=== PATIENT | male | born 1935 | race Caucasian/White ===

== ENCOUNTER → 2017-07-04 08:28 | Outpatient (CLI) | payer MEDICARE, OTHER, SELFPAY ==
[2017-07-04 09:28] LABS: AST(SGOT) 16 U/L (15-37); Alanine Aminotransfer ALT/SGPT 19 U/L (16-61); Albumin, Serum 3.5 g/dL (3.2-5.0); Alkaline Phosphatase 108 U/L (45-117); Bilirubin, Direct 0.07 mg/dL (0.00-0.30); Cholesterol 151 mg/dL (200); Globulin 3.9 g/dL (2.2-4.2); High Density Lipoprotein 37 mg/dL; Protein, Total 7.4 g/dL (6.4-8.2); Triglycerides 140 mg/dL; Very Low Density Lipoprotein 28 mg/dL (5-40)
== END ==
PROVIDERS: Family Provider Family Medicine Geriatric Medicine; PCP Family Medicine Geriatric Medicine; Visit Provider Internal Medicine Cardiovascular Disease
DX: I50.22 Chronic systolic (congestive) heart failure (principal); I42.8 Other cardiomyopathies
CPT/HCPCS: 36415; 80061; 80076

== ENCOUNTER → 2018-05-03 14:08 | Outpatient (CLI) | payer MEDICARE, OTHER, SELFPAY ==
[2018-05-03 14:08] VITALS: BMI 27.4
[2018-05-03 15:57] LABS: Absolute Lymphocyte Count 1.28 X10^3/ul (0.83-4.51); Absolute Neutrophil Count 4.9 X10^3/uL (2.0-7.7); Basophil# 0.03 X10^3/uL; Basophil% 0.4 % (0-1); Eosinophil# 0.15 X10^3/uL; Eosinophils% 2.1 % (0-5); Hematocrit 46.7 % (40-54); Hemoglobin 15.1 g/dl (13.0-16.5); Lymphocyte # 1.28 X10^3/ul (4.0); Lymphocyte % 18.2 % (19-41); Mean Corp Hgb Conc 32.3 g/gl (32-36); Mean Corpuscular Volume 92.8 fL (80-94); Mean Platelet Vol. 9.8 fl (6.2-12.0); Monocyte# 0.68 X10^3/uL; Monocyte% 9.6 % (0-10); Neutrophil # 4.89 X10^3/uL (2.7-7.7); Neutrophil % 69.4 % (47-70); Platelet Count 216 K/mm3 (150-450); RBC Distribution Width CV 14.2 % (11.6-14.6); RBC Distribution Width SD 48.2 fl (35.1-43.9); Red Blood Count 5.03 M/mm3 (4.6-6.2); White Blood Count 7.1 K/mm3 (4.4-11.0)
[2018-05-03 16:14] LABS: POSITIVE COUNT NO; POSITIVE DIFFERENTIAL NO; POSITIVE MORPHOLOGY NO
[2018-05-03 16:18] LABS: Vitamin D,25 Hydroxy 23.2 ng/mL (29.95-100.01)
[2018-05-03 16:25] LABS: ALB/GLOB Ratio 0.8 RATIO (0.9-2.4); AST(SGOT) 16 U/L (15-37); Alanine Aminotransfer ALT/SGPT 18 U/L (16-61); Albumin, Serum 3.4 g/dL (3.2-5.0); Alkaline Phosphatase 95 U/L (45-117); Anion Gap 7 (5-15); BUN 21 mg/dL (7-18); BUN/Creat Ratio 16.9 RATIO (10-20); Calcium,Total 8.7 mg/dL (8.5-10.1); Chloride 105 mmol/L (98-107); Creatinine, Serum 1.24 mg/dL (0.70-1.30); EST Glomerular Filtration Rate 59 mL/min (>60); Est Glom Filt Rate - Afr Amer 72 mL/min (>60); Globulin 4.1 g/dL (2.2-4.2); Glucose 112 mg/dL (74-106); Potassium 4.2 mmol/L (3.5-5.1); Protein, Total 7.5 g/dL (6.4-8.2); Sodium Level 139 mmol/L (136-145); Thyroid Stim Hormone (TSH) 1.82 uIU/mL (0.358-3.74)
--- OUTSIDE RECORDS SUMMARY | 2018-06-19 18:54 | XMS RPT_ITS ---
:1935 Author Organization OHIP Care Team Providers Name Role Phone Mian, Chago Chi Attending Unavailable Mian, Chago Chi Primary Care Unavailable Agustin Tao Attending Unavailable Mian, Chago Chi Referring Unavailable Aretha Justice Attending Unavailable Yordy Hayes Attending Unavailable Mian, Chago Chi Referring Unavailable Mian, Chago Chi Primary Care Unavailable Yordy Hayes Attending Unavailable Mian, Chago Chi Primary Care Unavailable Yordy Hayes Attending Unavailable Mian, Chago Chi Referring Unavailable Mian, Chago Chi Primary Care Unavailable Yordy Hayes Attending Unavailable Mian, Chago Chi Referring Unavailable Yordy Hayes Attending Unavailable Mian, Chago Chi Referring Unavailable Main, Chago Chi Primary Care Unavailable PROBLEMS PROBLEMS DATE TYPE CONDITION / CODE ATTENDING STATUS SOURCE 02/02/2018 Unknown I42.8 - Other Yordy Hayes Active [facility] cardiomyopathies / Community I42.8(ICD-10) Hospital Repository 08/29/2017 Unknown I50.22 - Chronic Yordy Hayes Active [facility] systolic (congestive) [facility] heart failure / Hospital I50.22(ICD-10) Repository PROCEDURES PROCEDURES No Procedure Records FoundRESULTS RESULTS CBC W/DIFF, AUTOMATED Collected: 05/03/2018 Status: F Source: [place] 2:10 PM [facility] REPOSITORY TYPE CODE TESTS RESULT OUT OF RANGE REFERENCE UNITS LAB L100.1000 4.4-11.0 K/mm3 Normal WBC 7.1 LAB L100.1200 4.6-6.2 M/mm3 Normal RBC 5.03 LAB L100.1300 13.0-16.5 g/dl Normal HGB 15.1 LAB L100.1400 40-54 % Normal HCT 46.7 LAB L100.1500 80-94 fL Normal MCV 92.8 LAB L100.1600 27.0-32.0 pg Normal MCH 30.0 LAB L100.1700 32-36 g/gl Normal MCHC 32.3 LAB L100.1810 11.6-14.6 % Normal RDW CV 14.2 LAB L100.1820 35.1-43.9 fl High RDW SD 48.2 LAB L100.1900 150-450 K/mm3 Normal PLT 216 LAB L100.2000 6.2-12.0 fl Normal MPV 9.8 LAB L100.2100 47-70 % Normal NEUT% 69.4 LAB L100.2200 19-41 % Low LY% 18.2 LAB L100.2300 0-10 % Normal MONO% 9.6 LAB L100.2400 0-5 % Normal EO% 2.1 LAB L100.2500 0-1 % Normal BASO% 0.4 LAB L100.2550 0.0-0.9 % Normal IM GRAN % 0.300 Result Comment: IG% - Immature Granulocytes (promyelocytes, myelocytes and metamyelocytes) > 1% indicates that a LEFT SHIFT is Present. LAB L100.2620 2.0-7.7 X10 3/uL Normal Absolute Neut 4.9 LAB L100.2720 0.83-4.51 X10 3/ul Normal Absolute Lymph 1.28 Performed By: #### L100.0100 #### [facility] [address] [place], [address] VITAMIN D,25 HYDROXY Collected: 05/03/2018 Status: F Source: [place] 2:10 PM [facility] REPOSITORY TYPE CODE TESTS RESULT OUT OF REFERENCE UNITS RANGE LAB L506.1000 29.95-100.01 ng/mL Low Vitamin D 23.2 25-OH Result Comment: Vitamin D 25(OH) Status Range Deficiency <20 ng/mL (50nmol/L) Insuffciency 20 - 30 ng/mL (50 - 75 nmol/L) Sufficiency 30 - 100 ng/mL (75 - 250 nmol/L) Toxicity >100 ng/mL (>250 nmol/L) Performed By: #### L506.1000 #### [facility] [address] [place], [address] COMPREHENSIVE METABOLIC Collected: 05/03/2018 Status: F [facility] REPOSITORY TYPE CODE TESTS RESULT OUT OF RANGE REFERENCE UNITS LAB L501.0100 74-106 mg/dL High GLU 112 Result Comment: Fasting Glucose result from 100 to 125 mg/dL suggests IMPAIRED HOMEOSTASIS per A.D.A. criteria. Please note revised GLUCOSE reference range effective 2017. LAB L501.1000 7-18 mg/dL High BUN 21 LAB L501.1100 0.70-1.30 mg/dL Normal CREAT,SERUM 1.24 Result Comment: The validity of the calculated GFR AND GFRAA in patients over 70 years has not been determined. Clinical correlation is essential. LAB L501.1110 >60 mL/min Low EST GFR 59 Result Comment: Non- GFR Calc LAB L501.1115 >60 mL/min Normal EST GFR - AA 72 Result Comment: GFR Calc LAB L501.1300 10-20 RATIO Normal BUN/CRE 16.9 LAB L501.1500 6.4-8.2 g/dL T Normal PROT 7.5 LAB L501.1800 3.2-5.0 g/dL Normal ALB 3.4 LAB L501.1950 2.2-4.2 g/dL Normal GLOB 4.1 LAB L501.2000 0.9-2.4 RATIO Low A/G 0.8 LAB L501.2200 8.5-10.1 mg/dL CA Normal 8.7 LAB L501.4100 15-37 U/L Normal AST 16 LAB L501.4305 45-117 U/L Normal ALK P 95 LAB L501.4405 16-61 U/L Normal ALT 18 LAB L501.4600 0.20-1.00 mg/dL T Normal BILI 0.40 LAB L501.5300 136-145 mmol/L NA Normal 139 LAB L501.5600 3.5-5.1 mmol/L K Normal 4.2 LAB L501.5900 98-107 mmol/L CL Normal 105 LAB L501.6100 21.0-32.0 mmol/L Normal CO2 27.0 LAB L501.6200 5-15 Normal GAP 7 Performed By: #### L500.4050, L501.9520 #### [facility] [address] [place], [address] THYROID STIM HORMONE Collected: 05/03/2018 Status: F Source: [place] ([facility]) 2:10 PM [facility] REPOSITORY TYPE CODE TESTS RESULT OUT OF RANGE REFERENCE UNITS LAB L501.9520 0.358-3.74 uIU/mL Normal TSH 1.82 Performed By: #### L500.4050, L501.9520 #### [facility] [address] [facility] [facility] [place], [address] CARDIOLOGY VISIT Observed: 02/02/2018 Status: F Source: [place] REPORT 2:38 PM [facility] REPOSITORY [facility] [address] [place] [address] OFFICE VISIT Date of Service: 02/02/18 MR#: [id number] Acct: [id number] Name: DONALDAUSTIN Chanel Rep #: [id number] : 1935 Provider: Yordy Hayes MD Age/Sex: 82/M [place] [facility] [place]: Signed HPI HPI Chief Complaint: Routine f/u Details: referring physician: Dr. Mian Bennett is a very pleasant 82-year-old nondiabetic gentleman, who presented to [facility] with new onset heart failure. At that time he was found to have an ejection fraction of 30%, and mild pulmonary hypertension with an RVSP of 45 mmHg. 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 The patient underwent a diagnostic left heart catheterization done by myself on 01/17/14. This confirmed an EF about pressure is 20%, with nonobstructive coronary artery disease. No additional angioplasty was required. The patient was placed on Coreg, Aldactone, Lasix. He was initially placed on Lotensin but this was discontinued for an unknown reason. He denied any dry cough as a reason for his discontinuation. he was subsequently placed on Cozaar and is tolerating this well. Patient is here for follow-up. He reports feeling much better. He denies any chest pain, angina, shortness of breath or dyspnea on exertion. He denies any edema. He denies any palpitations, lightheadedness or dizziness. He denies smoking or alcohol use. He is previously underwent hip surgery on 07/11/14, and 08/15/14. His repeat echocardiogram dated 04/09/15 showed an EF of 65% improved from 45%. Patient had repeat catheterization in 2016 which was similar to previous catheterization with minimal nonobstructive disease. No intervention was performed. Since her last visit, the patient denies any symptoms. He denies any chest pain, angina, shortness of breath or dyspnea on exertion he is taking and tolerating his medicines well although he forgot his list of medicines today. He does not take his blood pressure at home. Patient stopped taking his diuretic as he was urinating all the time. Despite not being on a diuretic he still urinates about 5 times a day. In our office today his blood pressure is 140/60 pulse is 60 and regular. Physical exam is as below. His lipids as of 12/2013 showing HDL of 33 and an LDL of 63. His lipids as of 07/04/17 showed LDL of 86, and HDL 37. Intake Vital Signs02/02/18 Height 5 ft 6 in 02/02/18 Weight: 167 lb 02/02/18 Body Mass Index (BMI) 26.9 02/02/18 Blood Pressure 140/60 Intake Visit Reasons: 6 M Seismographer Required: No Is patient in pain?: No Allergies Sulfa (Sulfonamide Antibiotics) Allergy (Unknown, Verified 02/02/18 14:30) Unknown Medications Aspirin [Adult Low Dose Aspirin EC] 81 mg PO DAILY 11/17/16 [History Confirmed 02/02/18] losartan 50 mg tablet 50 mg PO BID #180 tab 07/12/17 [Rx Confirmed 02/02/18] carvedilol 25 mg tablet 25 mg PO BID #60 tab 11/18/17 [Rx Confirmed 02/02/18] famotidine 40 mg tablet 40 mg PO DAILY 02/02/18 [History Confirmed 02/02/18] [facility] Medical History Nonrheumatic aortic (valve) insufficiency (Chronic) Nonrheumatic tricuspid (valve) insufficiency (Chronic) Secondary pulmonary arterial hypertension (Chronic) Chronic systolic (congestive) heart failure (Chronic) Hypertension (Chronic) Non-ischemic cardiomyopathy (Chronic) Diverticulitis (Chronic) Osteoarthritis (Chronic) Surgical History History of left heart catheterization (Chronic 11/18/16) History of inguinal hernia repair (Chronic) History of total left knee replacement (Chronic) right hip surgery (Chronic) Social History Smoking Status: Former smoker ROS Const Const: Negative for fatigue, weakness, body ache, fever(s), headache(s), chills, frequent falls, night sweats, daytime sleepiness, difficulty sleeping, excessive sweating, weight gain, weight loss, increased appetite, poor appetite, anorexia or other Eyes Eyes: Negative for blind spots, loss of peripheral vision, transient loss of vision, blurry vision, change in vision, double vision, floaters, tunnel vision or other ENT ENT: Negative for headache(s), dizziness, hearing loss, tinnitus, Nosebleed/epistaxis, balance problems, post nasal drip, lip swelling, tongue swelling, bleeding gums, hoarseness, neck pain, dry mouth or other Cardio Chest Pain: No Palpitations: No Edema: None Muscle aches with walking: None Resp Respiratory: Negative for SOB with activity, SOB at rest, SOB orthopnea\SOB lying down, Coughing up blood/hemoptysis, chest congestion, pain on inspiration, snoring, stridor, wheezing, crackles, paroxysmal nocturnal dyspnea or other GI GI: Negative nausea, vomiting, heartburn, constipation, belching, bloating, cramping, vomiting blood/hematemesis, bright, red blood in stools, black,tarry stools, loose stools, Difficulty Swallowing or other : Negative for hematuria, frequent nighttime urination/ nocturia, erectile dysfunction or abnormal vaginal bleeding Musc Musc: Negative for balance problems, muscle aches/ myalgia, muscle weakness or joint pain Skin Skin: Negative redness, non-healing lesions, rash, unusual bruising, skin ulcer, wounds, jaundice or other Neuro Neuro: Negative for weakness, headache(s), frequent falls, blurry vision, double vision, dizziness, lightheadedness, near syncope, syncope, orthostatic symptoms, confusion, memory loss, restless legs, vertigo, seizures, lack of coordination or other [place]ylan Hematologic/Lymphatic: Negative for easy bleeding, easy bruising, enlarged lymph nodes or other Endo Endo: Negative for fatigue, excessive sweating, cold intolerance, heat intolerance, flushing, increased thirst/drinking, increased hunger, hair loss, hair growth or other Psych Psych: Negative for anxiety, depression, thoughts of harming anyone, thoughts of harming yourself, visual hallucinations, panic attacks or audible hallucinations Allergy Allergy/Immunology: Negative for lip swelling, Negative for tongue swelling, Negative for rash, Negative for throat swelling, Negative for hives Cardiology Exam Const Appearance: cooperative, healthy appearing and no acute distress Nutritional Appearance: well nourished Orientation: alert, oriented x3 and oriented to person Head Head: normal to inspection, atraumatic and normocephalic Nose: external nose normal Face and Sinus: face symmetric Mouth: oral mucosae normal Eyes General: appearance normal, both eyes and all related structures Eyelids: eyelids normal Conjunctivae: conjunctivae normal Pupils: PERRL and normal by confrontation EOM: EOM intact bilaterally Neck Neck: normal visual inspection and full ROM Carotids: normal carotid upstroke Chest Chest inspection: normal inspection of the chest Auscultation: Bilateral: Clear to Auscultation Cardio Palpation: normal PMI Rate: regular rate Rhythm: regular rhythm Heart sounds: S1 normal and S2 normal GI GI: normal to inspection, no hepatosplenomegaly and bowel sounds present Neuro General: alert, oriented x3, awake, CN's II-XI intact bilaterally and moves all extremities Skin Skin: no rashes or lesions noted Extremities Pulses: Normal: Right Femoral Pulse, Left Femoral Pulse, Right Dorsalis Pedis Pulse, Left Dorsalis Pedis Pulse, Right Posterior Tibial Pulse, Left Posterior Tibial Pulse, Right Radial Pulse, Left Radial Pulse Lower Extremity Edema: None: Bilateral Psych Psychological: normal affect Assessment AND Plan 1. Non-ischemic cardiomyopathy I42.8 Plan 1. Nonischemic cardiomyopathy: The patient's LV function is markedly improved with medical therapy and blood pressure control. Recommend he continue his baby aspirin, Coreg and losartan. He has held his diuretic therapy as he is urinating all the time and his blood pressure has been okay. He has no edema at all. No indication for any additional testing. 2. Hyperlipidemia: His LDL and HDL cholesterol are at goal. No indication for antilipid therapy at this time. 3. Return office in 4 months with either myself or an ADMINISTRATIVE OPERATIONS COORDINATOR. This note was generated using a voice recognition system and there may be incorrect words, spelling or punctuation that were not noted when reviewing the office note prior to saving. Plan Detail Other Medications New: Discontinued: Follow Up +4M (Freddy or ADMINISTRATIVE OPERATIONS COORDINATOR) Coding Level of Care Code Off vis,est,level 3 Diagnoses Non-ischemic cardiomyopathy I42.8 Coding Level of Care Code Off vis,est,level 3 Diagnoses Non-ischemic cardiomyopathy I42.8 02/02/18 1438 <Electronically signed by Yordy Hayes MD> Date [facility] MD [facility] Signature: Date (if applicable) CC: Chago Pappas MD OFFICE VISIT REPORT Observed: 08/31/2017 Status: F Source: [place] 3:23 PM [place] [address] [address] [place] [address] OFFICE VISIT Date of Service: 08/29/17 MR#: [id number] Acct: [id number] Patient: AUSTIN BENNETT Rep #: [id number] : 1935 Provider: Yordy Hayes MD Age/Sex: 81/M [place] [facility] [place]: Signed Intake Intake Visit Reasons: per Brii Benitez Chief Complaint: Routine f/u Allergies Sulfa (Sulfonamide Antibiotics) Allergy (Unknown, Verified 11/17/16 11:18) Unknown Medications Carvedilol [Coreg (Beta Timbo)] 25 mg PO BID #90 tab 01/18/14 [Rx Confirmed 11/17/16] Furosemide [Lasix] 40 mg PO DAILY 04/04/15 [History Confirmed 11/17/16] Aspirin [Adult Low Dose Aspirin EC] 81 mg PO DAILY 11/17/16 [History Confirmed 11/17/16] Omeprazole [Prilosec] 20 mg PO DAILY 11/17/16 [History Confirmed 11/17/16] losartan 50 mg tablet 50 mg PO BID #180 tab 07/12/17 [Rx] Assessment AND Plan Orders Orders: Nursing Note Patient stopped by office to ask what meds he could take with a cold. I reviewed and wrote those down. He then wanted me to check his BP; it has been 140-150's at home. I got 150/50. I listened to his heart rate: it was 60 and irregular, so I did an ekg. It showed frequent PAC's, no atrial fib. I advised him to go home and we would contact him if any changes needed. 08/31/17 1523 <Electronically signed by Yordy Hayes MD> Date Yordy Hayes MD Cosigner Signature: Date (if applicable) CC: Brii Benitez 12 LEAD EKG PERFORMED Observed: 08/29/2017 Status: F Source: [place] BY [facility] 8:54 AM [facility] REPOSITORY [facility] [address] [place] [address] 12 Lead EKG performed by HARVEY 08/29/17 0853 MR#: [id number] Acct: [id number] Name: AUSTIN BENNETT Rep #: [id number] : 1935 81 From: Yordy Hayes MD Attending Dr: Yordy Hayes MD Status: DEP AMB Ordering Dr: Yordy Hayes MD Date: 08/29/17 [place] [facility] [place]: M C Admitted: BMS/12 Lead EKG performed by [facility] ECG Report Interpretation Sinus Rhythm - frequent PAC s # PACs = 2.-RSR(V1) -nondiagnostic. Voltage criteria for LVH (R(I)+S(III) exceeds 2.50 mV) -Voltage criteria w/o ST/T abnormality may be normal. BORDERLINEElectronically signed on 10/03/2017 at 09:38 by Yordy Hayes 10/03/17 0941 Date Yordy Hayes MD CC: Chago Pappas MD Date Dictated: 08/29/17 0853 Date Transcribed: 08/29/1753 Health Information Systems Technician: Signed LIVER PROFILE Collected: 07/04/2017 Status: F Source: [place] 8:31 AM [facility] REPOSITORY TYPE CODE TESTS RESULT OUT OF RANGE REFERENCE UNITS LAB L501.1500 6.4-8.2 g/dL Normal T PROT 7.4 LAB L501.1800 3.2-5.0 g/dL Normal ALB 3.5 LAB L501.1950 2.2-4.2 g/dL Normal GLOB 3.9 LAB L501.4100 15-37 U/L Normal AST 16 LAB L501.4305 45-117 U/L Normal ALK P 108 LAB L501.4405 16-61 U/L Normal ALT 19 Result Comment: Please note revised ALT reference range effective 2017. LAB L501.4600 0.20-1.00 mg/dL Normal T BILI 0.50 LAB L501.4700 0.00-0.30 mg/dL Normal D BILI 0.07 Performed By: #### L500.3400, L500.4100 #### [facility] [address] [place], [address] LIPID PROFILE Collected: 07/04/2017 Status: F Source: [place] 8:31 AM [facility] REPOSITORY TYPE CODE TESTS RESULT OUT OF RANGE REFERENCE UNITS LAB L501.4900 200 mg/dL Normal CHOL 151 Result Comment: <200 mg/dL Desirable 200-240 mg/dL Borderline >240 mg/dL High Risk LAB L501.5000 mg/dL Normal TRIG 140 Result Comment: The drugs N-Acetylcysteine and Metamizole may falsely depress this assay. Serum Triglycerides Reference Interval Normal <150 mg/dL Borderline high 150 - 199 mg/dL High 200 - 499 mg/dL Very High > or = 500 mg/dL LAB L501.6400 mg/dL Low HDL 37 Result Comment: The drugs N-Acetylcysteine and Metamizole may falsely depress this assay. Reference Range HDL <40 mg/dL Low HDL Cholesterol HDL >or= 60 mg/dL High HDL Cholesterol LAB L501.6500 0-130 mg/dL Normal LDL 86 LAB L501.6600 5-40 mg/dL Normal VLDL 28 Performed By: #### L500.3400, L500.4100 #### [facility] [address] [place], [address] CARDIOLOGY VISIT Observed: 06/28/2017 Status: F Source: [place] REPORT 1:16 PM [facility] REPOSITORY [facility] 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 At that time he was found to have an ejection fraction of 30%, and mild pulmonary hypertension with an RVSP of 45 mmHg. 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 The patient underwent a diagnostic left heart catheterization done by myself on 01/17/14. This confirmed an EF about pressure is 20%,with nonobstructive coronary artery disease. No additional angioplasty was required. The patient was placed on Coreg, Aldactone, Lasix. He was initially placed on Lotensin but this was discontinued for an unknown reason. He denied any dry cough as a reason for his discontinuation. he was subsequently placed on Cozaar and is tolerating this well. Patient is here for follow-up. He reports feeling much better. He denies any chest pain, angina, shortness of breath or dyspnea on exertion. He denies any edema. He denies any palpitations, lightheadedness or dizziness. He denies smoking or alcohol use. He is recently underwent hip surgery on 07/11/14, and 08/15/14. His repeat echocardiogram dated 04/09/15 showed an EF of 65% improved from 45%. Patient had repeat catheterization in 2016 which was similar to previous catheterization with minimal nonobstructive disease. No intervention was performed. Since her last visit, the patient denies any symptoms. He is taking and tolerating his medicines well although he forgot his list of medicines today. He does not take his blood pressure at home. In our office today his blood pressure is 160/76 pulse is 54 and regular. Physical exam is as below. His lipids as of 12/2013 showing HDL of 33 and an LDL of 63. Intake Vital Signs06/28/17 Height 5 ft 6 in Intake Visit Reasons: 6 M FU Allergies Sulfa (Sulfonamide Antibiotics) Allergy (Unknown, Verified 11/17/16 11:18) Unknown Medications Carvedilol [Coreg (Beta Timbo)] 25 mg PO BID #90 tab 01/18/14 [Rx Confirmed 11/17/16] Furosemide [Lasix] 40 mg PO DAILY 04/04/15 [History Confirmed 11/17/16] Aspirin [Adult Low Dose Aspirin EC] 81 mg PO DAILY 11/17/16 [History Confirmed 11/17/16] Losartan Potassium [Cozaar] 25 mg PO BID 11/17/16 [History Confirmed 11/17/16] Omeprazole [Prilosec] 20 mg PO DAILY 11/17/16 [History Confirmed 11/17/16] [facility] Medical History Secondary pulmonary arterial hypertension (Chronic) Chronic systolic (congestive) heart failure (Chronic) Hypertension (Chronic) Non-ischemic cardiomyopathy (Chronic) Diverticulitis (Chronic) Osteoarthritis (Chronic) Surgical History History of inguinal hernia repair (Chronic) History of left heart catheterization (Chronic 11/19/15) History of total left knee replacement (Chronic) right hip surgery (Chronic) Social History Smoking Status: Former smoker ROS Const Const: Negative for difficulty sleeping, fatigue, excessive sweating, weakness, frequent falls or headache(s) Eyes Eyes: Negative for loss of peripheral vision, transient loss of vision, blurry vision or double vision ENT ENT: Negative for Nosebleed/epistaxis, Negative for balance problems, Negative for headache(s), Negative for dizziness Cardio Chest Pain: No Edema: None Muscle aches with walking: None Resp Respiratory: Negative for SOB with activity, SOB at rest, SOB orthopnea\SOB lying down or paroxysmal nocturnal dyspnea GI GI: Negative nausea or heartburn : Negative for hematuria Musc Musc: Negative for muscle aches/ myalgia, muscle weakness, joint pain or balance problems Skin Skin: Negative non-healing lesions, unusual bruising or rash Neuro Neuro: Negative for weakness, Negative for frequent falls, Negative for blurry vision, Negative for headache(s), Negative for dizziness, Negative for lightheadedness, Negative for orthostatic symptoms, Negative for double vision Froylan Hematologic/Lymphatic: Negative for easy bruising Endo Endo: Negative for fatigue, excessive sweating or increased thirst/drinking Psych Psych: Negative for anxiety or depression Allergy Allergy/Immunology: Negative for hives, Negative for rash Cardiology Exam Const Appearance: cooperative, healthy appearing and no acute distress Nutritional Appearance: well nourished Orientation: alert, oriented x3 and oriented to person Head Head: normal to inspection, atraumatic and normocephalic Nose: external nose normal Face and Sinus: face symmetric Mouth: oral mucosae normal Eyes General: appearance normal, both eyes and all related structures Eyelids: eyelids normal Conjunctivae: conjunctivae normal Pupils: PERRL and normal by confrontation EOM: EOM intact bilaterally Neck Neck: normal visual inspection and full ROM Carotids: normal carotid upstroke Chest Chest inspection: normal inspection of the chest Auscultation: Bilateral: Clear to Auscultation Cardio Palpation: normal PMI Rate: regular rate Rhythm: regular rhythm Heart sounds: S1 normal and S2 normal GI GI: normal to inspection, no hepatosplenomegaly and bowel sounds present Neuro General: alert, oriented x3, awake, CN's II-XI intact bilaterally and moves all extremities Skin Skin: no rashes or lesions noted Extremities Pulses: Normal: Right Femoral Pulse, Left Femoral Pulse, Right Dorsalis Pedis Pulse, Left Dorsalis Pedis Pulse, Right Posterior Tibial Pulse, Left Posterior Tibial Pulse, Right Radial Pulse, Left Radial Pulse Lower Extremity Edema: None: Bilateral Psych Psychological: normal affect Assessment AND Plan Plan 1. LV dysfunction: This is most likely a product of his uncontrolled hypertension for many years. His blood pressure has been fairly well-controlled on our visits in the past however today his blood pressure is 160/76. Patient is not taking his Lasix regularly out of concern for difficulty getting to the bathroom. I recommended that he obtain a blood pressure cuff at home and take it twice a day, write down the readings, and call us in 2 weeks to determine if his blood pressure is high at home. If it is I would have a low threshold to increase his losartan to 50 mg p.o. twice daily and recommend continuing low-dose diuretic therapy such as Lasix 20 mg a day. He is asymptomatic from a cardiac standpoint and does not require any additional testing at this time. 2. Hyperlipidemia: Recommend obtaining a repeat lipid profile. 3. Return office in 6 months. This note was generated using a voice recognition system and there may be incorrect words, spelling or punctuation that were not noted when reviewing the office note prior to saving. Orders Orders: Plan Detail Follow Up 6 Months (Freddy) Coding Level of Care Code Off vis,est,level 3 Coding Level of Care Code Off vis,est,level 3 06/28/17 1316 <Electronically signed by Yordy Hayes MD> Date Yordy Hayes MD Cosigner Signature: Date (if applicable) CC: ALLERGIES ALLERGIES DATE TYPE / CODE NAME / CODE REACTION SEVERITY SOURCE 02/02/2018 Drug Sulfa Unknown Unknown [facility] Allergy/4160 ([facility] [address](SNOMED Antibiotics)/ Repository CT) [id number](RX NORM) ENCOUNTERS ENCOUNTERS ADMIT/DISCHARGE ACCOUNT ADMITTING ENCOUNTER LOCATION SOURCE NUMBER CLASS 06/08/2018/ [id number] Ambulatory BMSBuilding:B [place] 9 4 [facility] Repository 05/03/2018 [id number] Ambulatory [place] [facility] ing:POLAB3 Repository 02/02/2018/ [id number] Ambulatory BMSBuilding:B [place] 8 0 [facility] Repository 01/19/2018 [id number] Ambulatory BMSBuilding:B [place] 2 [facility] Repository 08/29/2017/ [id number] Ambulatory BMSBuilding:B [place] 8 4 [facility] Repository 07/04/2017 [id number] Ambulatory [place] [facility] ing:LAB Repository 06/28/2017/ [id number] Ambulatory BMSBuilding:B [place] 8 6 [facility] Repository 06/27/2017 [id number] Ambulatory BMSBuilding:B [place] 9 [facility] Repository PAYERS PAYERS ENCOUNTER GUARANTOR PAYER SUBSCRIBER SOURCE 06/08/2018 [place] Primary [place] [id number] [place] Insurance:MEDICARE MOWREYDOB: [facility] PART A [place]olic [id number] Number: Repository [id number]: [phone] [id number] [phone] () Date:2018-02-02 06/08/2018 Secondary [place] Insurance:PHYSICIAN MOWREYDOB: [facility] INS COPolicy [id number] [facility] Number: Repository [id number] Date:5502-61-12RK TIFFANIE BUSTAMANTE ALF [address]OU: 06/08/2018 Tertiary NOT GIVENUNK [place] Insurance:SELF PAY [facility] Number: Effective Repository Date:2018-06-08 05/03/2018 [place] A Primary [place] [id number] [place] Insurance:MEDICARE MOWREYDOB: Community [place] PART A olicy [id number] Number[place] Repository [address]Hgp: 330 [id number] [phone] () Date:2018-05-03 05/03/2018 Secondary [place] Insurance:PHYSICIAN MOWREYDOB: Community MUTUAL INS COPolicy [id number] Hospital Number: Repository [id number] Date:0915-14-43AJ [address] [address]UK: 05/03/2018 Tertiary NOT GIVENUNK [place] Insurance:SELF PAY [facility] Number: Effective Repository Date:2018-05-03 02/02/2018 [place] A Primary [place] [id number] [place] Insurance:MEDICARE MOWREYDOB: Community [place] PART A olic [id number] Number: Repository [id number]: 330 [id number] [phone] () Date:2018-01-27 02/02/2018 Secondary [place] Insurance:PHYSICIAN MOWREYDOB: Community MUTUAL INS COPolicy [id number] Hospital Number: Repository [id number] Date:6920-49-15VL [address] [address]ZX: 02/02/2018 Tertiary NOT GIVENUNK [place] Insurance:SELF PAY [facility] Number: Effective Repository Date:2018-01-27 01/19/2018 [place] A Primary [place] [id number] [place] Insurance:MEDICARE MOWREYDOB: Community [place] PART A olic [id number] Number: Repository [address]Msh: 330 [id number] [phone] () Date:2017-06-28 01/19/2018 Secondary [place] Insurance:PHYSICIAN MOWREYDOB: Community MUTUAL INS COPolicy [id number] Hospital Number: Repository [id number] Date:4311-51-69XE [address] [place] [address]CT: 01/19/2018 Tertiary NOT GIVENUNK [place] Insurance:SELF PAY [facility] Effective Repository Date:2017-06-28 08/29/2017 [place] A Primary [place] [id number] [place] Insurance:MEDICARE MOWREYDOB: Community [place] PART A olic [id number] Number: Repository [id number]: 330 [id number] [phone] () Date:2017-08-29 08/29/2017 Secondary [place] Insurance:PHYSICIAN MOWREYDOB: Community [facility] [id number] Hospital Number: Repository [id number] Date:1593-04-37[address] [address]GO: 08/29/2017 Tertiary NOT GIVENUNK [place] Insurance:SELF PAY [facility] Number: Effective Repository Date:2017-08-29 07/04/2017 [place] Primary [place] [id number] [place] Insurance:MEDICARE MOWREYDOB: Community [place] PART A [facility] [id number] Number: Repository [id number]: 330 [id number] [phone] () Date:2017-07-04 07/04/2017 Secondary [place] Insurance:PHYSICIAN MOWREYDOB: Community MUTUAL INS COPolicy [id number] Hospital Number: Repository [id number] Date:4770-55-28GF [address] [place] [address]XW: 07/04/2017 Tertiary NOT GIVENUNK [place] Insurance:SELF PAY [facility] Number: Effective Repository Date:2017-07-04 06/28/2017 [place] A Primary [place] [id number] [place] Insurance:MEDICARE MOWREYDOB: Community [place] PART A [facility] [id number] Number: Repository [id number]: [phone] [id number] [phone] (HP) Date:2017-04-24 06/28/2017 Secondary [place] Insurance:PHYSICIAN MOWREYDOB: Community [facility]UAL [facility] [id number] Hospital Number: Repository [id number] Date:1448-56-03WF [address] [address]UW: 06/28/2017 Tertiary NOT GIVENUNK [place] Insurance:SELF PAY [facility] Number: Effective Repository Date:2017-04-24 06/27/2017 [place] A [place] [id number] [place] Insurance:MEDICARE MowreyDOB: [facility] [place] [facility] [id number] Number[place] Repository [address]Nmm: 330 [id number] [phone] (HP) Date:2017-06-27 06/27/2017 Secondary [place] Insurance:PHYSICIAN MowreyDOB: [facility]UTUAL INS [facility] [id number] Hospital Number: Repository [id number] Date:2518-52-83TY [address] [place] [address]JM: 06/27/2017 Tertiary NOT GIVENUNK [place] Insurance:SELF PAY [facility] Number: Effective Repository Date:2017-06-27
== END ==
PROVIDERS: Family Provider Family Medicine Geriatric Medicine; PCP Family Medicine Geriatric Medicine; Visit Provider Family Medicine Geriatric Medicine
DX: I10 Essential (primary) hypertension (principal); E55.9 Vitamin D deficiency, unspecified
CPT/HCPCS: 36415; 80053; 82306; 84443; 85025

== ENCOUNTER → 2018-11-03 08:46 | Outpatient (CLI) | payer MEDICARE, OTHER, SELFPAY ==
[2018-06-08 08:48] VITALS: BMI 27.4
[2018-11-03 12:54] LABS: Absolute Lymphocyte Count 1.23 X10^3/ul (0.83-4.51); Absolute Neutrophil Count 5.2 X10^3/uL (2.0-7.7); Basophil# 0.02 X10^3/uL; Basophil% 0.3 % (0-1); Eosinophil# 0.19 X10^3/uL; Eosinophils% 2.5 % (0-5); Hematocrit 44.8 % (40-54); Hemoglobin 14.5 g/dl (13.0-16.5); Lymphocyte # 1.23 X10^3/ul (4.0); Lymphocyte % 16.4 % (19-41); Mean Corp Hgb Conc 32.4 g/gl (32-36); Mean Corpuscular Hgb 29.7 pg (27.0-32.0); Mean Corpuscular Volume 91.8 fL (80-94); Mean Platelet Vol. 9.7 fl (6.2-12.0); Monocyte# 0.78 X10^3/uL; Monocyte% 10.4 % (0-10); Neutrophil # 5.24 X10^3/uL (2.7-7.7); Neutrophil % 70.1 % (47-70); Platelet Count 217 K/mm3 (150-450); RBC Distribution Width CV 14.1 % (11.6-14.6); RBC Distribution Width SD 46.9 fl (35.1-43.9); Red Blood Count 4.88 M/mm3 (4.6-6.2); White Blood Count 7.5 K/mm3 (4.4-11.0)
[2018-11-03 12:58] LABS: POSITIVE COUNT NO; POSITIVE DIFFERENTIAL NO; POSITIVE MORPHOLOGY NO
[2018-11-03 13:11] LABS: Vitamin D,25 Hydroxy 20.2 ng/mL (29.95-100.01)
[2018-11-03 13:13] LABS: ALB/GLOB Ratio 0.8 RATIO (0.9-2.4); AST(SGOT) 14 U/L (15-37); Alanine Aminotransfer ALT/SGPT 20 U/L (16-61); Albumin, Serum 3.1 g/dL (3.2-5.0); Alkaline Phosphatase 96 U/L (45-117); Anion Gap 9 (5-15); BUN 18 mg/dL (7-18); BUN/Creat Ratio 16.1 RATIO (10-20); Calcium,Total 8.5 mg/dL (8.5-10.1); Chloride 108 mmol/L (98-107); Creatinine, Serum 1.12 mg/dL (0.70-1.30); EST Glomerular Filtration Rate 66 mL/min (>60); Est Glom Filt Rate - Afr Amer 80 mL/min (>60); Glucose 105 mg/dL (74-106); Potassium 4.1 mmol/L (3.5-5.1); Protein, Total 7.1 g/dL (6.4-8.2); Sodium Level 142 mmol/L (136-145); Thyroid Stim Hormone (TSH) 1.56 uIU/mL (0.358-3.74)
== END ==
PROVIDERS: Family Provider Family Medicine Geriatric Medicine; PCP Family Medicine Geriatric Medicine; Visit Provider Family Medicine Geriatric Medicine
DX: I10 Essential (primary) hypertension (principal); E55.9 Vitamin D deficiency, unspecified
CPT/HCPCS: 36415; 80053; 82306; 84443; 85025

== ENCOUNTER → 2019-01-09 12:13 | Outpatient (CLI) | payer MEDICARE, OTHER, SELFPAY ==
[2019-01-01 15:42] VITALS: BMI 27.2
--- NOTE | 2019-01-09 12:16 | ECHOD_ITS ---
Reason For Study: CHF Procedure This was a 2D Doppler, Color Flow transthoracic echocardiogram. Exam performed in department. Left Ventricle Normal size and thickness. The estimated ejection fraction is 60 %. Stage 1 diastolic dysfunction. No regional wall motion abnormalities noted. Right Ventricle Normal size and thickness. Normal systolic function. Atria The left atrium is moderately enlarged. Normal right atrium. Normal atrial septum. Mitral Valve Mild diffuse mitral valve thickening. Trivial mitral valve insufficiency. Tricuspid Valve Normal tricuspid valve. Trivial tricuspid valve insufficiency. Right ventricular systolic pressure estimated to be 31 mmHg. Aortic Valve Trisinus/trileaflet aortic valve. Mild diffuse aortic valve thickening. There is no aortic stenosis. Trivial aortic valve insufficiency. Pulmonic Valve Normal pulmonic valve. Great Vessels Calcified aortic root. Normal arch. Normal inferior vena cava. Inferior vena cava collapse with sniff. Pericardium/Pleural No pericardial effusion. MMode/2D Measurements & Calculations LVIDd: 5.0 cm IVSd: 1.00 cm Ao root diam: 3.2 cm LVIDs: 3.5 cm LVPWd: 1.2 cm RVDd: 3.3 cm FS: 30.2 % LAV(MOD-bp): 61.7 ml LA A4 area: 23.5 cm2 LA dimension(2D): 3.5 cm LAV(MOD-bp) Indexed: 31.3 ml/m2 LAV(MOD-sp2): 45.1 ml LAV(MOD-sp4): 78.8 ml RA A4 area: 11.2 cm2 Doppler Measurements & Calculations MV E max stephan: 63.5 cm/sec Lat Peak E' Stephan: 5.4 cm/sec Med Peak E' Stephan: 4.5 cm/sec MV A max stephan: 74.8 cm/sec E/E' lat: 11.7 E/E' med: 14.2 MV E/A: 0.85 Ao V2 max: 151.6 cm/sec LV V1 max: 94.8 cm/sec PA V2 max: 92.0 cm/sec Ao max P.2 mmHg LV V1 max P.6 mmHg TR max stephan: 254.3 cm/sec TR max P.9 mmHg Interpretation Summary The estimated ejection fraction is 60 %. Stage 1 diastolic dysfunction. The left atrium is moderately enlarged. Trivial mitral valve insufficiency. Trivial tricuspid valve insufficiency. Right ventricular systolic pressure estimated to be 31 mmHg. Trivial aortic valve insufficiency. There is no aortic stenosis. Compared to echo report dated 11/10/2016, LV function has markedly improved from 45% to 60%. Ordering Physician: Yordy Hayes Referring Physician: Chago Pappas Chi Performed By: Alexia Capone RDCS
== END ==
PROVIDERS: Family Provider Family Medicine Geriatric Medicine; PCP Family Medicine Geriatric Medicine; Referring Provider Internal Medicine Cardiovascular Disease; Visit Provider Internal Medicine Cardiovascular Disease
DX: I35.1 Nonrheumatic aortic (valve) insufficiency (principal)
CPT/HCPCS: 93306

== ENCOUNTER → 2019-01-12 12:14 | Outpatient (CLI) | payer MEDICARE, OTHER, SELFPAY ==
[2019-01-01 15:42] VITALS: BMI 27.2
--- NOTE | 2019-01-12 12:15 | STEWCON_ITS ---
Reason For Study: CHF, Cardiomyopathy Stress Results Protocol: Dobutamine Stress Echo Maximum Predicted HR: 136 bpm Target HR: 116 bpm % Maximum Predicted HR: 89 % Heart Stage Duration Rate BP Comment (mm:ss) (bpm) No Chest Pain; BP Prior to Start 190/80, NTG 0.4 MG Given SL per Baseline 57 136/74Order, BP After NTG 136/74; Diluted Definity 5 ML Given DSE 10 MCG 3:48 60 116/76No Chest Pain DSE 20 MCG 3:00 65 122/69No Chest Pain DSE 30 MCG 3:00 72 131/89No Chest Pain; Atroping 0.25 MG IVP DSE 40 MCG 3:43 121 140/86No Chest Pain; Atropine 0.25 MG IVP Recovery 87 146/86No Chest Pain Stress Duration: 13:31 mm:ss Maximum Stress HR: 121 bpm METS: 1 Baseline Echocardiogram Findings The estimated ejection fraction is 65 %. Stress Echo Wall motion Data Resting WM Intermediate WM Stress WM Resting Wall Motion Wall Motion Stress No regional wall motion No regional wall motion abnormalities noted. abnormalities noted. EKG Data The baseline ECG displays normal sinus rhythm. The patient was titrated from 10 mcg to a maximum of 40 mcg of dobutamine during the stress. The maximum heart rate attained was 166 beats per minute. This was 122% of maximum predicted heart rate. During dobutamine infusion, there were no ST or T wave changes noted to suggest ischemia. No clinical angina was noted. Interpretation Summary The estimated ejection fraction is 65 %. Normal, adequate, dobutamine echocardiogram. Negative for ischemia by EKG and echocardiographic criteria. No anginal symptoms noted. Rare PVC noted. Appropriate blood pressure response to dobutamine. Final LVEF of 75%. Test terminated due to attainment target heart rate. Decreased sensitivity due to poor echo windows requiring Definity agent. No complications. The study was technically difficult. Contrast injection was performed. Ordering Physician: Yordy Hayes Referring Physician: Chago Pappas Chi Performed By: Kay Lara, PHIL, RVT
== END ==
PROVIDERS: Family Provider Family Medicine Geriatric Medicine; PCP Family Medicine Geriatric Medicine; Referring Provider Internal Medicine Cardiovascular Disease; Visit Provider Internal Medicine Cardiovascular Disease
DX: I11.0 Hypertensive heart disease with heart failure (principal); I50.22 Chronic systolic (congestive) heart failure; I27.21 Secondary pulmonary arterial hypertension; I42.8 Other cardiomyopathies
CPT/HCPCS: 93017; 93350; J7040; Q9957; A4216; C8928

== ENCOUNTER → 2019-02-01 08:48 | Outpatient (CLI) | payer MEDICARE, OTHER, SELFPAY ==
[2019-01-01 15:42] VITALS: BMI 27.2
[2019-02-01 13:14] LABS: Absolute Lymphocyte Count 1.57 X10^3/uL (0.83-4.51); Absolute Neutrophil Count 5.5 X10^3/uL (2.0-7.7); Basophil# 0.03 X10^3/uL; Basophil% 0.4 % (0-1); Eosinophil# 0.15 X10^3/uL; Eosinophils% 1.8 % (0-5); Hematocrit 44.5 % (40-54); Hemoglobin 14.1 g/dL (13.0-16.5); Lymphocyte # 1.57 X10^3/ul (4.0); Lymphocyte % 18.9 % (19-41); Mean Corp Hgb Conc 31.7 g/dL (32-36); Mean Corpuscular Hgb 29.6 pg (27.0-32.0); Mean Corpuscular Volume 93.3 fL (80-94); Mean Platelet Vol. 9.7 fl (6.2-12.0); Monocyte# 1.05 X10^3/uL; Monocyte% 12.7 % (0-10); NRBC Flagged by Analyzer 0 % (0-5); Neutrophil # 5.47 X10^3/uL (2.7-7.7); Neutrophil % 65.8 % (47-70); Platelet Count 220 K/mm3 (150-450); RBC Distribution Width CV 14.1 % (11.6-14.6); RBC Distribution Width SD 47.8 fl (35.1-43.9); Red Blood Count 4.77 M/mm3 (4.6-6.2); White Blood Count 8.3 K/mm3 (4.4-11.0)
[2019-02-01 13:30] LABS: Vitamin D,25 Hydroxy 22.1 ng/mL (29.95-100.01)
[2019-02-01 13:33] LABS: ALB/GLOB Ratio 0.8 RATIO (0.9-2.4); AST(SGOT) 16 U/L (15-37); Alanine Aminotransfer ALT/SGPT 22 U/L (16-61); Albumin, Serum 3.2 g/dL (3.2-5.0); Alkaline Phosphatase 100 U/L (45-117); Anion Gap 5 (5-15); BUN 21 mg/dL (7-18); BUN/Creat Ratio 17.9 RATIO (10-20); Calcium,Total 8.7 mg/dL (8.5-10.1); Chloride 108 mmol/L (98-107); Creatinine, Serum 1.17 mg/dL (0.70-1.30); EST Glomerular Filtration Rate 63 mL/min (>60); Est Glom Filt Rate - Afr Amer 76 mL/min (>60); Glucose 79 mg/dL (74-106); Potassium 4.3 mmol/L (3.5-5.1); Protein, Total 7.2 g/dL (6.4-8.2); Sodium Level 143 mmol/L (136-145); Thyroid Stim Hormone (TSH) 2.07 uIU/mL (0.358-3.74)
== END ==
PROVIDERS: Family Provider Family Medicine Geriatric Medicine; PCP Family Medicine Geriatric Medicine; Visit Provider Family Medicine Geriatric Medicine
DX: I10 Essential (primary) hypertension (principal); E55.9 Vitamin D deficiency, unspecified
CPT/HCPCS: 36415; 80053; 82306; 84443; 85025

== ENCOUNTER → 2019-05-04 10:57 | Outpatient (CLI) | payer MEDICARE, OTHER, SELFPAY ==
[2019-01-01 15:42] VITALS: BMI 27.2
[2019-05-04 12:38] LABS: Absolute Lymphocyte Count 1.84 X10^3/uL (0.83-4.51); Absolute Neutrophil Count 6.4 X10^3/uL (2.0-7.7); Basophil# 0.05 X10^3/uL; Basophil% 0.5 % (0-1); Eosinophil# 0.17 X10^3/uL; Eosinophils% 1.8 % (0-5); Hematocrit 44.9 % (40-54); Hemoglobin 14.3 g/dL (13.0-16.5); Lymphocyte # 1.84 X10^3/ul (4.0); Lymphocyte % 19.1 % (19-41); Mean Corp Hgb Conc 31.8 g/dL (32-36); Mean Corpuscular Hgb 29.5 pg (27.0-32.0); Mean Corpuscular Volume 92.6 fL (80-94); Mean Platelet Vol. 9.9 fl (6.2-12.0); Monocyte# 1.15 X10^3/uL; NRBC Flagged by Analyzer 0 % (0-5); Neutrophil # 6.37 X10^3/uL (2.7-7.7); Neutrophil % 66.3 % (47-70); Platelet Count 234 K/mm3 (150-450); RBC Distribution Width SD 47.5 fl (35.1-43.9); Red Blood Count 4.85 M/mm3 (4.6-6.2); White Blood Count 9.6 K/mm3 (4.4-11.0)
[2019-05-04 12:53] LABS: Vitamin D,25 Hydroxy 17.4 ng/mL (29.95-100.01)
[2019-05-04 13:29] LABS: ALB/GLOB Ratio 0.9 RATIO (0.9-2.4); AST(SGOT) 15 U/L (15-37); Alanine Aminotransfer ALT/SGPT 18 U/L (16-61); Albumin, Serum 3.4 g/dL (3.2-5.0); Alkaline Phosphatase 112 U/L (45-117); Anion Gap 5 (5-15); BUN 16 mg/dL (7-18); Calcium,Total 8.6 mg/dL (8.5-10.1); Chloride 107 mmol/L (98-107); Creatinine, Serum 1.23 mg/dL (0.70-1.30); EST Glomerular Filtration Rate 60 mL/min (>60); Est Glom Filt Rate - Afr Amer 72 mL/min (>60); Globulin 3.8 g/dL (2.2-4.2); Glucose 76 mg/dL (74-106); Potassium 4.2 mmol/L (3.5-5.1); Protein, Total 7.2 g/dL (6.4-8.2); Sodium Level 139 mmol/L (136-145); Thyroid Stim Hormone (TSH) 2.18 uIU/mL (0.358-3.74)
== END ==
PROVIDERS: Family Provider Family Medicine Geriatric Medicine; PCP Family Medicine Geriatric Medicine; Visit Provider Family Medicine Geriatric Medicine
DX: E55.9 Vitamin D deficiency, unspecified (principal); I10 Essential (primary) hypertension
CPT/HCPCS: 36415; 80053; 82306; 84443; 85025

== ENCOUNTER → 2019-12-24 14:26 | Outpatient (CLI) | payer MEDICARE, OTHER, SELFPAY ==
[2019-01-01 15:42] VITALS: BMI 27.2
[2019-12-24 16:10] LABS: Absolute Lymphocyte Count 1.68 X10^3/uL (0.83-4.51); Absolute Neutrophil Count 6.2 X10^3/uL (2.0-7.7); Basophil# 0.04 X10^3/uL; Basophil% 0.4 % (0-1); Eosinophil# 0.11 X10^3/uL; Eosinophils% 1.2 % (0-5); Hemoglobin 13.9 g/dL (13.0-16.5); Lymphocyte # 1.68 X10^3/ul (4.0); Lymphocyte % 18.8 % (19-41); Mean Corp Hgb Conc 31.6 g/dL (32-36); Mean Corpuscular Volume 91.7 fL (80-94); Mean Platelet Vol. 10.2 fl (6.2-12.0); Monocyte# 0.85 X10^3/uL; Monocyte% 9.5 % (0-10); NRBC Flagged by Analyzer 0 % (0-5); Neutrophil % 69.7 % (47-70); Platelet Count 241 K/mm3 (150-450); RBC Distribution Width CV 13.3 % (11.6-14.6); RBC Distribution Width SD 44.8 fl (35.1-43.9); White Blood Count 8.9 K/mm3 (4.4-11.0)
[2019-12-24 16:22] LABS: ALB/GLOB Ratio 0.8 RATIO (0.9-2.4); AST(SGOT) 13 U/L (15-37); Alanine Aminotransfer ALT/SGPT 19 U/L (16-61); Albumin, Serum 3.2 g/dL (3.2-5.0); Alkaline Phosphatase 100 U/L (45-117); Anion Gap 6 (5-15); BUN 19 mg/dL (7-18); BUN/Creat Ratio 16.5 RATIO (10-20); Calcium,Total 8.6 mg/dL (8.5-10.1); Chloride 109 mmol/L (98-107); Creatinine, Serum 1.15 mg/dL (0.70-1.30); EST Glomerular Filtration Rate 64 mL/min (>60); Est Glom Filt Rate - Afr Amer 78 mL/min (>60); Glucose 109 mg/dL (74-106); Potassium 3.9 mmol/L (3.5-5.1); Protein, Total 7.2 g/dL (6.4-8.2); Sodium Level 142 mmol/L (136-145); Thyroid Stim Hormone (TSH) 1.69 uIU/mL (0.358-3.74)
== END ==
PROVIDERS: PCP Family Medicine Geriatric Medicine; Visit Provider Family Medicine Geriatric Medicine
DX: E55.9 Vitamin D deficiency, unspecified (principal); I10 Essential (primary) hypertension
CPT/HCPCS: 36415; 80053; 82306; 84443; 85025

== ENCOUNTER → 2020-01-24 12:13 | Outpatient (CLI) | payer MEDICARE, OTHER, SELFPAY ==
[2019-01-01 15:42] VITALS: BMI 27.2
[2020-01-24 12:46] LABS: Absolute Lymphocyte Count 1.24 X10^3/uL (0.83-4.51); Absolute Neutrophil Count 4.7 X10^3/uL (2.0-7.7); Basophil# 0.04 X10^3/uL; Basophil% 0.6 % (0-1); Eosinophil# 0.15 X10^3/uL; Eosinophils% 2.2 % (0-5); Hematocrit 42.9 % (40-54); Hemoglobin 13.7 g/dL (13.0-16.5); Lymphocyte # 1.24 X10^3/ul (4.0); Mean Corp Hgb Conc 31.9 g/dL (32-36); Mean Corpuscular Hgb 29.7 pg (27.0-32.0); Mean Corpuscular Volume 93.1 fL (80-94); Mean Platelet Vol. 10.1 fl (6.2-12.0); Monocyte# 0.68 X10^3/uL; Monocyte% 9.9 % (0-10); NRBC Flagged by Analyzer 0 % (0-5); Neutrophil # 4.72 X10^3/uL (2.7-7.7); Neutrophil % 68.7 % (47-70); Platelet Count 228 K/mm3 (150-450); RBC Distribution Width CV 13.4 % (11.6-14.6); RBC Distribution Width SD 46.1 fl (35.1-43.9); Red Blood Count 4.61 M/mm3 (4.6-6.2); White Blood Count 6.9 K/mm3 (4.4-11.0)
[2020-01-24 12:57] LABS: Vitamin D,25 Hydroxy 31.4 ng/mL
[2020-01-24 13:07] LABS: ALB/GLOB Ratio 0.8 RATIO (0.9-2.4); AST(SGOT) 18 U/L (15-37); Alanine Aminotransfer ALT/SGPT 19 U/L (16-61); Albumin, Serum 3.1 g/dL (3.2-5.0); Alkaline Phosphatase 95 U/L (45-117); Anion Gap 5 (5-15); BUN 19 mg/dL (7-18); BUN/Creat Ratio 14.3 RATIO (10-20); Calcium,Total 8.6 mg/dL (8.5-10.1); Chloride 110 mmol/L (98-107); Creatinine, Serum 1.33 mg/dL (0.70-1.30); EST Glomerular Filtration Rate 54 mL/min (>60); Est Glom Filt Rate - Afr Amer 66 mL/min (>60); Globulin 3.9 g/dL (2.2-4.2); Glucose 147 mg/dL (74-106); Potassium 4.1 mmol/L (3.5-5.1); Sodium Level 142 mmol/L (136-145); Thyroid Stim Hormone (TSH) 2.07 uIU/mL (0.358-3.74)
== END ==
PROVIDERS: PCP Family Medicine Geriatric Medicine; Visit Provider Family Medicine Geriatric Medicine
DX: E55.9 Vitamin D deficiency, unspecified (principal); I10 Essential (primary) hypertension
CPT/HCPCS: 36415; 80053; 82306; 84443; 85025

== ENCOUNTER → 2020-11-21 12:44 | Outpatient (CLI) | payer MEDICARE, OTHER, SELFPAY ==
[2019-01-01 15:42] VITALS: BMI 27.2
--- NOTE | 2020-11-21 12:55 | RAD_ITS ---
STUDY: X-RAY - LEFT ANKLE REASON FOR EXAM: Male, 84 years old. Ankle pain. Fall one week ago. Patient states no longer has pain. TECHNIQUE: 3 view(s) of the ankle. COMPARISON: None. FINDINGS: Normal visualized distal tibia and fibula. Normal medial and lateral malleoli. Arthrosis on tibiotalar articulation and ankle mortise. Normal visualized talus and calcaneus. The visualized subtalar, talonavicular, calcaneocuboid and tarsal articulations are normal. There are vascular calcifications in the soft tissues. RAD/Ankle min 3 Views IMPRESSION: Degenerative changes of the ankle without acute fracture or dislocation. Electronically Signed: Isaac Hernandez DO at 17:12 EDT Tel [phone], Service support ,
--- NOTE | 2020-11-21 12:55 | RAD_ITS ---
STUDY: X-RAY - UNILATERAL RIBS ( LEFT ) WITH CHEST REASON FOR EXAM: Male, 84 years old. PLEURODYNIA. Fall one week ago. Anterior mid left rib pain no resolved. TECHNIQUE - RIBS: 4 view(s) of the ribs. TECHNIQUE - CHEST: Single PA view of the chest. COMPARISON: Chest, 11/17/2016. FINDINGS - RIBS: There are healed fractures of the posterior lateral fourth through sixth ribs. No acute fracture is seen. FINDINGS - CHEST: The lungs are well-expanded. No acute infiltrate or mass. There is no demonstrated pleural abnormality. Normal size heart. There are calcified lymph nodes in the AP window normal alin.. Normal visualized pulmonary arteries. Normal visualized aortic arch and descending thoracic aorta. There are diffuse degenerative changes of the visualized thoracic spine. 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 Retrocardiac hiatal hernia. The upper abdomen is otherwise unremarkable. RAD/Ribs Uni Min 3V w/PA Chest IMPRESSION: RIBS: Old left-sided rib fractures there is no evidence of acute abnormality. CHEST: No acute cardiopulmonary disease or change from 02/04/2017. Electronically Signed: Isaac Hernandez DO at 17:15 EDT Tel [phone], Service support ,
== END ==
PROVIDERS: PCP Family Medicine Geriatric Medicine; Referring Provider Family Medicine Geriatric Medicine; Visit Provider Family Medicine Geriatric Medicine
DX: R07.81 Pleurodynia (principal); M25.579 Pain in unspecified ankle and joints of unspecified foot
CPT/HCPCS: 71101; 73610

== ENCOUNTER → 2021-02-03 11:22 | Outpatient (CLI) | payer MEDICARE, OTHER, SELFPAY ==
[2021-02-03 12:09] LABS: Absolute Lymphocyte Count 1.57 X10^3/uL (0.83-4.51); Absolute Neutrophil Count 5.1 X10^3/uL (2.0-7.7); Basophil# 0.03 X10^3/uL; Basophil% 0.4 % (0-1); Eosinophil# 0.12 X10^3/uL; Eosinophils% 1.6 % (0-5); Hematocrit 42.5 % (40-54); Hemoglobin 13.2 g/dL (13.0-16.5); Lymphocyte # 1.57 X10^3/ul (0.83-4.51); Lymphocyte % 20.4 % (19-41); Mean Corp Hgb Conc 31.1 g/dL (32-36); Mean Corpuscular Hgb 27.6 pg (27.0-32.0); Mean Corpuscular Volume 88.9 fL (80-94); Mean Platelet Vol. 9.9 fl (6.2-12.0); Monocyte# 0.84 X10^3/uL; Monocyte% 10.9 % (0-10); NRBC Flagged by Analyzer 0 % (0-5); Neutrophil # 5.09 X10^3/uL (2.7-7.7); Neutrophil % 66.2 % (47-70); Platelet Count 234 K/mm3 (150-450); RBC Distribution Width CV 14.5 % (11.6-14.6); RBC Distribution Width SD 46.8 fl (35.1-43.9); Red Blood Count 4.78 M/mm3 (4.6-6.2); White Blood Count 7.7 K/mm3 (4.4-11.0)
[2021-02-03 12:52] LABS: ALB/GLOB Ratio 0.8 RATIO (0.9-2.4); AST(SGOT) 16 U/L (15-37); Alanine Aminotransfer ALT/SGPT 20 U/L (16-61); Albumin, Serum 3.1 g/dL (3.2-5.0); Alkaline Phosphatase 112 U/L (45-117); Anion Gap 5 (5-15); BUN 20 mg/dL (7-18); BUN/Creat Ratio 14.9 RATIO (10-20); Calcium,Total 8.6 mg/dL (8.5-10.1); Chloride 107 mmol/L (98-107); Creatinine, Serum 1.34 mg/dL (0.70-1.30); EST Glomerular Filtration Rate 54 mL/min (>60); Est Glom Filt Rate - Afr Amer 65 mL/min (>60); Glucose 117 mg/dL (74-106); Potassium 4.2 mmol/L (3.5-5.1); Protein, Total 7.1 g/dL (6.4-8.2); Sodium Level 139 mmol/L (136-145); Thyroid Stim Hormone (TSH) 1.63 uIU/mL (0.358-3.74)
[2021-02-03 12:54] LABS: Vitamin D,25 Hydroxy 24.3 ng/mL
== END ==
PROVIDERS: PCP Family Medicine Geriatric Medicine; Referring Provider Family Medicine Geriatric Medicine; Visit Provider Family Medicine Geriatric Medicine
DX: I10 Essential (primary) hypertension (principal); E55.9 Vitamin D deficiency, unspecified
CPT/HCPCS: 36415; 80053; 82306; 84443; 85025

== ENCOUNTER 2021-08-05 11:14 | Outpatient (CLI) | payer MEDICARE, OTHER, SELFPAY ==
[2021-08-05 12:19] LABS: Absolute Lymphocyte Count 1.54 X10^3/uL (0.83-4.51); Basophil# 0.04 X10^3/uL; Basophil% 0.5 % (0-1); Eosinophil# 0.15 X10^3/uL; Hematocrit 38.9 % (40-54); Hemoglobin 12.6 g/dL (13.0-16.5); Lymphocyte # 1.54 X10^3/ul (0.83-4.51); Lymphocyte % 20.5 % (19-41); Mean Corp Hgb Conc 32.4 g/dL (32-36); Mean Corpuscular Hgb 28.5 pg (27.0-32.0); Mean Platelet Vol. 10.1 fl (6.2-12.0); Monocyte# 0.78 X10^3/uL; Monocyte% 10.4 % (0-10); NRBC Flagged by Analyzer 0 % (0-5); Neutrophil # 4.99 X10^3/uL (2.7-7.7); Neutrophil % 66.3 % (47-70); Platelet Count 228 K/mm3 (150-450); RBC Distribution Width CV 14.4 % (11.6-14.6); RBC Distribution Width SD 46.5 fl (35.1-43.9); Red Blood Count 4.42 M/mm3 (4.6-6.2); White Blood Count 7.5 K/mm3 (4.4-11.0)
[2021-08-05 12:32] LABS: Vitamin D,25 Hydroxy 15.8 ng/mL
[2021-08-05 12:40] LABS: ALB/GLOB Ratio 0.8 RATIO (0.9-2.4); AST(SGOT) 16 U/L (15-37); Alanine Aminotransfer ALT/SGPT 21 U/L (16-61); Alkaline Phosphatase 100 U/L (45-117); Anion Gap 7 (5-15); BUN 26 mg/dL (7-18); BUN/Creat Ratio 18.1 RATIO (10-20); Chloride 109 mmol/L (98-107); Creatinine, Serum 1.44 mg/dL (0.70-1.30); EST Glomerular Filtration Rate 49 mL/min (>60); Est Glom Filt Rate - Afr Amer 60 mL/min (>60); Globulin 3.9 g/dL (2.2-4.2); Glucose 170 mg/dL (74-106); Potassium 4.3 mmol/L (3.5-5.1); Protein, Total 6.9 g/dL (6.4-8.2); Sodium Level 143 mmol/L (136-145); Thyroid Stim Hormone (TSH) 2.13 uIU/mL (0.358-3.74)
== END 2021-08-05 23:59 | disposition home or self-care (01) ==
LOC: POLAB3 11:15
PROVIDERS: PCP Family Medicine Geriatric Medicine; Visit Provider Family Medicine Geriatric Medicine
DX: I10 Essential (primary) hypertension (principal); E55.9 Vitamin D deficiency, unspecified
CPT/HCPCS: 36415; 80053; 82306; 84443; 85025

== ENCOUNTER → 2022-02-03 | Outpatient (CLI) | payer MEDICARE, OTHER, SELFPAY ==
[2022-02-03 12:06] LABS: Absolute Lymphocyte Count 1.65 X10^3/uL (0.83-4.51); Basophil# 0.04 X10^3/uL; Basophil% 0.5 % (0-1); Eosinophil# 0.14 X10^3/uL; Eosinophils% 1.8 % (0-5); Hematocrit 39.9 % (40-54); Hemoglobin 12.3 g/dL (13.0-16.5); Lymphocyte # 1.65 X10^3/ul (0.83-4.51); Lymphocyte % 21.2 % (19-41); Mean Corp Hgb Conc 30.8 g/dL (32-36); Mean Corpuscular Hgb 26.6 pg (27.0-32.0); Mean Corpuscular Volume 86.4 fL (80-94); Mean Platelet Vol. 10.1 fl (6.2-12.0); Monocyte# 0.95 X10^3/uL; Monocyte% 12.2 % (0-10); NRBC Flagged by Analyzer 0 % (0-5); Neutrophil # 4.96 X10^3/uL (2.7-7.7); Neutrophil % 63.9 % (47-70); Platelet Count 267 K/mm3 (150-450); RBC Distribution Width CV 15.9 % (11.6-14.6); RBC Distribution Width SD 50.1 fl (35.1-43.9); Red Blood Count 4.62 M/mm3 (4.6-6.2); White Blood Count 7.8 K/mm3 (4.4-11.0)
[2022-02-03 12:20] LABS: Vitamin D,25 Hydroxy 16.4 ng/mL
[2022-02-03 12:30] LABS: ALB/GLOB Ratio 0.7 RATIO (0.9-2.4); AST(SGOT) 11 U/L (15-37); Alanine Aminotransfer ALT/SGPT 17 U/L (16-61); Alkaline Phosphatase 110 U/L (45-117); Anion Gap 5 (5-15); BUN 27 mg/dL (7-18); BUN/Creat Ratio 19.1 RATIO (10-20); Calcium,Total 8.8 mg/dL (8.5-10.1); Chloride 107 mmol/L (98-107); Creatinine, Serum 1.41 mg/dL (0.70-1.30); EST Glomerular Filtration Rate 51 mL/min (>60); Est Glom Filt Rate - Afr Amer 61 mL/min (>60); Globulin 4.3 g/dL (2.2-4.2); Glucose 173 mg/dL (74-106); Potassium 4.3 mmol/L (3.5-5.1); Protein, Total 7.3 g/dL (6.4-8.2); Sodium Level 140 mmol/L (136-145)
== END | disposition home or self-care (01) ==
LOC: POLAB3 09:05
PROVIDERS: PCP Family Medicine Geriatric Medicine; Visit Provider Family Medicine Geriatric Medicine
DX: E55.9 Vitamin D deficiency, unspecified (principal); I10 Essential (primary) hypertension
CPT/HCPCS: 36415; 80053; 82306; 84443; 85025

== ENCOUNTER → 2022-08-26 | Outpatient (CLI) | payer MEDICARE, OTHER, SELFPAY ==
[2022-08-26 16:56] LABS: Absolute Lymphocyte Count 1.54 X10^3/uL (0.83-4.51); Absolute Neutrophil Count 5.3 X10^3/uL (2.0-7.7); Basophil# 0.03 X10^3/uL; Basophil% 0.4 % (0-1); Eosinophil# 0.11 X10^3/uL; Eosinophils% 1.4 % (0-5); Hematocrit 40.2 % (40-54); Hemoglobin 12.4 g/dL (13.0-16.5); Lymphocyte # 1.54 X10^3/ul (0.83-4.51); Lymphocyte % 19.8 % (19-41); Mean Corp Hgb Conc 30.8 g/dL (32-36); Mean Corpuscular Hgb 26.3 pg (27.0-32.0); Mean Corpuscular Volume 85.4 fL (80-94); Monocyte# 0.71 X10^3/uL; Monocyte% 9.1 % (0-10); NRBC Flagged by Analyzer 0 % (0-5); Neutrophil # 5.34 X10^3/uL (2.7-7.7); Neutrophil % 68.8 % (47-70); Platelet Count 257 K/mm3 (150-450); RBC Distribution Width CV 16.2 % (11.6-14.6); RBC Distribution Width SD 50.5 fl (35.1-43.9); Red Blood Count 4.71 M/mm3 (4.6-6.2); White Blood Count 7.8 K/mm3 (4.4-11.0)
[2022-08-26 17:24] LABS: Vitamin D,25 Hydroxy 16.5 ng/mL
[2022-08-26 17:34] LABS: ALB/GLOB Ratio 0.8 RATIO (0.9-2.4); AST(SGOT) 19 U/L (15-37); Alanine Aminotransfer ALT/SGPT 19 U/L (16-61); Albumin, Serum 3.1 g/dL (3.2-5.0); Alkaline Phosphatase 109 U/L (45-117); Anion Gap 2 (5-15); BUN 23 mg/dL (7-18); BUN/Creat Ratio 17.2 RATIO (10-20); Calcium,Total 8.6 mg/dL (8.5-10.1); Chloride 106 mmol/L (98-107); Creatinine, Serum 1.34 mg/dL (0.70-1.30); EST Glomerular Filtration Rate 54 mL/min (>60); Est Glom Filt Rate - Afr Amer 65 mL/min (>60); Glucose 132 mg/dL (74-106); Potassium 4.1 mmol/L (3.5-5.1); Protein, Total 7.1 g/dL (6.4-8.2); Sodium Level 139 mmol/L (136-145); Thyroid Stim Hormone (TSH) 2.11 uIU/mL (0.358-3.74)
== END | disposition home or self-care (01) ==
LOC: POLAB3 14:50
PROVIDERS: PCP Family Medicine Geriatric Medicine; Visit Provider Family Medicine Geriatric Medicine
DX: I10 Essential (primary) hypertension (principal); E55.9 Vitamin D deficiency, unspecified
CPT/HCPCS: 36415; 80053; 82306; 84443; 85025

== ENCOUNTER → 2022-12-17 | Outpatient (CLI) | payer MEDICARE, OTHER, SELFPAY ==
--- NOTE | 2022-12-17 12:33 | RAD_ITS ---
STUDY: X-RAY - RIGHT HAND REASON FOR EXAM: Male, 87 years old. OSTEOARTHRITIS OF HANDS TECHNIQUE: 3 view(s) of the hand. COMPARISON: None. FINDINGS: There is joint space narrowing of the radiocarpal articulation consistent with degenerative arthrosis. Normal distal radioulnar joint. Normal visualized carpal bones. Normal carpal articulations There is degenerative arthrosis of the carpometacarpal (CMC) articulation of the thumb. Normal second through fifth carpometacarpal joints. Normal metacarpi. There is degenerative arthrosis of the metacarpophalangeal (MCP) joints. There is degenerative arthrosis of the interphalangeal joint of the thumb with articular joint space narrowing. Normal proximal and distal phalanges of the thumb. There is degenerative arthrosis of the metacarpophalangeal (MCP) joints. There is diffuse articular joint space narrowing of the proximal and distal interphalangeal joints of the second through fifth fingers, but without erosive changes or periarticular soft tissue swelling. Normal phalanges of the second through fifth fingers. The soft tissue structures are unremarkable. RAD/Hand Min 3 Views IMPRESSION: Moderate osteoarthritis. Electronically Signed: Eren Chavez MD at 22:45 EDT ,
--- NOTE | 2022-12-17 12:35 | RAD_ITS ---
STUDY: X-RAY - LEFT HAND REASON FOR EXAM: Male, 87 years old. OSTEOARTHRITIS OF HANDS TECHNIQUE: 3 view(s) of the hand. COMPARISON: None. FINDINGS: There is joint space narrowing of the radiocarpal articulation consistent with degenerative arthrosis. Normal distal radioulnar joint. Normal visualized carpal bones. Normal carpal articulations Normal carpometacarpal articulation of the thumb. Normal second through fifth carpometacarpal joints. Normal metacarpi. There is degenerative arthrosis of the metacarpophalangeal (MCP) joints. There is degenerative arthrosis of the interphalangeal joint of the thumb with articular joint space narrowing. Normal proximal and distal phalanges of the thumb. There is degenerative arthrosis of the metacarpophalangeal (MCP) joints. There is diffuse articular joint space narrowing of the proximal and distal interphalangeal joints of the second through fifth fingers, but without erosive changes or periarticular soft tissue swelling. Normal phalanges of the second through fifth fingers. The soft tissue structures are unremarkable. RAD/Hand Min 3 Views IMPRESSION: Moderate osteoarthritis. Electronically Signed: Eren Chavez MD at 22:46 EDT ,
[2022-12-17 12:46] LABS: Absolute Lymphocyte Count 1.36 X10^3/uL (0.83-4.51); Absolute Neutrophil Count 6.3 X10^3/uL (2.0-7.7); Basophil# 0.04 X10^3/uL; Basophil% 0.4 % (0-1); Eosinophil# 0.08 X10^3/uL; Eosinophils% 0.9 % (0-5); Hematocrit 37.6 % (40-54); Hemoglobin 11.6 g/dL (13.0-16.5); Lymphocyte # 1.36 X10^3/ul (0.83-4.51); Mean Corp Hgb Conc 30.9 g/dL (32-36); Mean Corpuscular Volume 84.1 fL (80-94); Mean Platelet Vol. 9.4 fl (6.2-12.0); Monocyte# 1.24 X10^3/uL; Monocyte% 13.7 % (0-10); NRBC Flagged by Analyzer 0 % (0-5); Neutrophil # 6.31 X10^3/uL (2.7-7.7); Neutrophil % 69.6 % (47-70); Platelet Count 295 K/mm3 (150-450); RBC Distribution Width CV 14.6 % (11.6-14.6); RBC Distribution Width SD 44.4 fl (35.1-43.9); Red Blood Count 4.47 M/mm3 (4.6-6.2); White Blood Count 9.1 K/mm3 (4.4-11.0)
[2022-12-17 12:57] LABS: Erythrocyte Sedimentation Rate 44 mm/hr (0-20)
[2022-12-17 13:29] LABS: ALB/GLOB Ratio 0.6 RATIO (0.9-2.4); AST(SGOT) 16 U/L (15-37); Alanine Aminotransfer ALT/SGPT 14 U/L (16-61); Albumin, Serum 2.8 g/dL (3.2-5.0); Alkaline Phosphatase 104 U/L (45-117); Anion Gap 5 (5-15); BUN 24 mg/dL (7-18); Calcium,Total 8.8 mg/dL (8.5-10.1); Chloride 109 mmol/L (98-107); Creatinine, Serum 1.41 mg/dL (0.70-1.30); EST Glomerular Filtration Rate 50 mL/min (>60); Est Glom Filt Rate - Afr Amer 61 mL/min (>60); Globulin 4.4 g/dL (2.2-4.2); Glucose 128 mg/dL (74-106); Potassium 4.4 mmol/L (3.5-5.1); Protein, Total 7.2 g/dL (6.4-8.2); Sodium Level 141 mmol/L (136-145); Uric Acid 5.3 mg/dL (3.5-7.2)
== END | disposition home or self-care (01) ==
PROVIDERS: PCP Family Medicine Geriatric Medicine; Visit Provider Family Medicine Geriatric Medicine
DX: M19.041 Primary osteoarthritis, right hand (principal); M19.042 Primary osteoarthritis, left hand; E79.0 Hyperuricemia without signs of inflammatory arthritis and tophaceous disease
CPT/HCPCS: 36415; 73130; 80053; 84550; 85025; 85652; 86141

== ENCOUNTER → 2023-03-23 | Outpatient (CLI) | payer MEDICARE, OTHER, SELFPAY ==
[2023-03-23 16:26] LABS: Absolute Lymphocyte Count 1.44 X10^3/uL (0.83-4.51); Absolute Neutrophil Count 5.9 X10^3/uL (2.0-7.7); Basophil# 0.04 X10^3/uL; Basophil% 0.5 % (0-1); Eosinophil# 0.14 X10^3/uL; Eosinophils% 1.7 % (0-5); Hematocrit 41.1 % (40-54); Hemoglobin 12.5 g/dL (13.0-16.5); Lymphocyte # 1.44 X10^3/ul (0.83-4.51); Mean Corp Hgb Conc 30.4 g/dL (32-36); Mean Corpuscular Hgb 26.5 pg (27.0-32.0); Mean Corpuscular Volume 87.1 fL (80-94); Mean Platelet Vol. 9.8 fl (6.2-12.0); Monocyte# 0.86 X10^3/uL; Monocyte% 10.2 % (0-10); NRBC Flagged by Analyzer 0 % (0-5); Neutrophil # 5.94 X10^3/uL (2.7-7.7); Platelet Count 295 K/mm3 (150-450); RBC Distribution Width CV 17.5 % (11.6-14.6); RBC Distribution Width SD 56.3 fl (35.1-43.9); Red Blood Count 4.72 M/mm3 (4.6-6.2); White Blood Count 8.5 K/mm3 (4.4-11.0)
[2023-03-23 16:40] LABS: Vitamin D,25 Hydroxy 21.4 ng/mL
[2023-03-23 16:48] LABS: ALB/GLOB Ratio 0.8 RATIO (0.9-2.4); AST(SGOT) 11 U/L (15-37); Alanine Aminotransfer ALT/SGPT 18 U/L (16-61); Alkaline Phosphatase 104 U/L (45-117); Anion Gap 5 (5-15); BUN 26 mg/dL (7-18); BUN/Creat Ratio 20.2 RATIO (10-20); Calcium,Total 8.6 mg/dL (8.5-10.1); Chloride 109 mmol/L (98-107); Creatinine, Serum 1.29 mg/dL (0.70-1.30); EST Glomerular Filtration Rate 56 mL/min (>60); Est Glom Filt Rate - Afr Amer 68 mL/min (>60); Globulin 3.9 g/dL (2.2-4.2); Glucose 116 mg/dL (74-106); Potassium 4.1 mmol/L (3.5-5.1); Protein, Total 6.9 g/dL (6.4-8.2); Sodium Level 143 mmol/L (136-145); Thyroid Stim Hormone (TSH) 2.16 uIU/mL (0.358-3.74)
== END | disposition home or self-care (01) ==
LOC: POLAB3 15:39
PROVIDERS: PCP Family Medicine Geriatric Medicine; Visit Provider Family Medicine Geriatric Medicine
DX: I10 Essential (primary) hypertension (principal); E55.9 Vitamin D deficiency, unspecified; M10.9 Gout, unspecified
CPT/HCPCS: 36415; 80053; 82306; 84443; 84550; 85025

== ENCOUNTER → 2023-04-21 | Outpatient (CLI) | payer MEDICARE, OTHER, SELFPAY ==
--- NOTE | 2023-04-21 16:14 | ST.MBS ---
Modified Barium Swallow Patient Information Study Date: 04/21/23 Study Time: 13:00 Direct Billable Minutes: 111 Total Minutes procedure & reportin Diagnosis: Dysphagia R13.10 Referring Physician: Chago Pappas Chi Reason for Referral: Objectively assess swallow function, assess risk for aspiration, and determine recommendations for least restrictive diet textures and compensatory strategies to improve safety of swallow. Medical History: The patient is a 87-year-old male with PMH including CAD, cardiomyopathy, HTN, and HLD. The patient denies dysphagia. He is accompanied by home health nurse, Iwona, who visits him 3X/week for ~1 hour to help him manage medications and take him to appointments. Per Iwona, the patient's daughter is concerned that he coughs frequently when eating. He reports no weight loss. He was referred for MBSS to assess concerns for dysphagia. Current Diet Ordered: Regular textures / Thin liquids Dentition: Upper Dentures and Partials (lower) Mental Status: WNL Respiratory Status: Oxygenating on Room Air Penetration-Aspiration Scale Penetration-Aspiration Scale: OBJECTIVE ASSESSMENT OF SWALLOW FUNCTION (QUANTITATIVE ? PER TRIAL): PENETRATION / ASPIRATION SCALE (PRABHAKAR): 1 = does not enter airway 2 = enters airway/above vocal folds/ejected 3 = enters airway/above vocal folds/not ejected 4 = enters airway/contacts vocal folds/ejected 5 = enters airway/contacts vocal folds/not ejected 6 = enters airway/below vocal folds/ejected 7 = enters airway/below vocal folds/not ejected despite effort 8 = enters airway/below vocal folds/no effort VIDEOFLOROSCOPIC SCALE SCORE (PRABHAKAR): Grade I = aspiration of material that has penetrated into the laryngeal vestibule, intact cough reflex Grade II = aspiration < 10 % of the bolus, intact cough reflex Grade III = aspiration of < 10 % of the bolus, reduced cough reflex or aspiration of > 10 % of the bolus, intact cough reflex Grade IV = aspiration of > 10 % of the bolus, reduced cough reflex Penetration-Aspiration Scale Score Thin Liquid via teaspoon: Result: 1= does not enter airway Thin Liquid via teaspoon Trial 2: Result: 2= enter airway/above vocal folds/ejected Thin Liquid via small single sip: cup: Result: 2= enter airway/above vocal folds/ejected [place] Thick Liquid via small single sip: cup: Result: 1= does not enter airway Pudding via teaspoon: Result: 1= does not enter airway Comment: Esophageal screen: Retention of pudding throughout the esophagus with retrograde flow remaining below the upper esophageal sphincter. Thin Liquid via sequential sips:straw: Result: 2= enter airway/above vocal folds/ejected Comment: Esophageal screen: Improved clearance of pudding retention; however, thin liquids also had some retention with retrograde flow to the upper esophagus remaining below the upper esophageal sphincter. / Cookie: Result: 1= does not enter airway Thin Liquid via small single sip: cup Trial 2: Result: 2= enter airway/above vocal folds/ejected Comment: Esophageal Screen: Thin liquid retention with retrograde flow to the upper esophagus remaining below the upper esophageal sphincter. Oral Phase Labial Seal: Interlabial escape, no progression to anterior lip Tongue Control During Bolus Hold: Posterior escape of less than half of bolus Bolus Preparation/Mastication: Timely and efficient chewing and mashing Bolus Transport/Lingual Motion: Delayed initiation of tongue motion Oral Residue: Residue collection on oral structures Pharyngeal Phase Initiation of Pharyngeal Swallow: Bolus head at posterior laryngeal surgace of epiglottis Soft Palate Elevation: Trace column of contrast/air between soft palate and pharyngeal wall Laryngeal Elevation: Comp. Superior move thyroid cart w/comp. apprx arytenoid cart-epig pet Anterior Hyoid Excursion: Partial anterior movement Epiglottic Movement: Complete inversion Laryngeal Vestibule Closure at Height of Swallow: Complete; no air/contrast in laryngeal vestibule Pharyngeal Stripping Wave: Present - complete Pharyngoesophageal Segment Opening: Complete distension and complete duration; no obstruction of flow Tongue Base Retraction: Trace column of contrast between tongue base & post. pharyngeal wall Pharyngeal Residue: Trace residue within or on pharyngeal structures Esophageal Phase Esophageal Clearance: Esophageal retention w/ retrograde flow below pharyngoesophageal seg. Diagnosis/Impression Diagnosis: Esophageal dysphagia R13.14, Oropharyngeal swallow function grossly WNL Impression: The patient demonstrated oropharyngeal swallow function grossly WNL. He demonstrated timely mastication. Piecemeal deglutition of cookie and certain sips. Good airway closure during the swallow with only trace laryngeal penetration of thin liquids with full ejection. No aspiration was observed. Trace pharyngeal residues. The esophageal phase is marked by... -Tortuous, narrow lower esophagus. -Retention of pudding throughout the esophagus, which somewhat improved with liquid wash; however, retention of portion of thin liquids demonstrated retrograde flow to the upper esophagus. The patient is at risk for reflux aspiration. Recommendations Diet: Mechanical Soft Textures (Soft and bite size textures (IDDSI Level 6)) and Thin Liquids Comment: 4-5 smaller, more frequent meals rather than 3 large meals; STOP meal if increased s/s of aspiration and resume at a later time Compensatory Strategies: Small Bites, Small Sips, Slow Rate, Alternate bites/solids and sips/liquids (1:1 ratio), Sitting upright and Remain sitting upright for 30 minutes after PO intake Recommend Repeat Modified Barium Swallow: No Need for Skilled Speech Therapy Services: No Recommended Referrals: GI Consult (tortuous, narrow lower esophagus; if recommended, he would be safe to participate in barium esophagram) Education Completed: 1. Described result of evaluation. Status Active ST Patient: Active Contact Information [facility] Speech Therapy:: Saba Fierro M.A. CCC-INFRASTRUCTURE CONSULTANT Speech-Language Pathologist [facility] [address] [place] [address] [email or web address] [phone]
== END | disposition home or self-care (01) ==
LOC: RAD 12:44
PROVIDERS: PCP Family Medicine Geriatric Medicine; Referring Provider Family Medicine Geriatric Medicine; Visit Provider Family Medicine Geriatric Medicine
DX: R13.10 Dysphagia, unspecified (principal)
CPT/HCPCS: 74230; 92611

== ENCOUNTER 2023-04-26 17:52 | Emergency (ER) | payer MEDICARE, OTHER, SELFPAY ==
[2023-04-26 17:53] VITALS: BP 113/72; PULSE 66; RESP 16; TEMP 36.1; O2SAT 94; BMI 22.5
--- NOTE | 2023-04-26 18:22 | EX.ED.UPPERE ---
HPI <FRANKIE Villalobos - Last Filed: 04/26/23 19:40> History of Present Illness Chief Complaint: Upper Extremity Injury Narrative Narrative: Patient presenting today due to a skin tear to his left upper arm that he got after falling a few days ago. He reports that he tripped and hit his arm against a brick. He denies any pain to his arm. He reports that the skin tear has had some recurrent bleeding. He denies being on any blood thinners aside from daily aspirin. He is unsure when his last tetanus was updated. PFSH <FRANKIE Villalobos - Last Filed: 04/26/23 19:40> [facility] Medical History CAD (coronary artery disease) Cardiomyopathy Chronic systolic (congestive) heart failure Diverticulitis Essential hypertension Mixed hyperlipidemia Non-ischemic cardiomyopathy Osteoarthritis Secondary pulmonary arterial hypertension Home Medications aspirin 81 mg tablet,delayed release 81 mg PO DAILY 11/17/16 [History Last Taken 11/18/16] donepezil 10 mg tablet (Aricept) 10 mg PO QHS 06/08/18 [History Last Taken Unknown] memantine 10 mg tablet 10 mg PO BID 01/01/19 [History Last Taken Unknown] BP Machine/Cuff #1 ea 01/16/21 [Rx Last Taken Unknown] losartan 50 mg tablet 50 mg PO DAILY 01/30/21 [History Last Taken Unknown] tamsulosin 0.4 mg capsule 0.4 mg PO DAILY #90 caps 02/05/21 [Rx Last Taken Unknown] amlodipine 2.5 mg tablet (Norvasc) 2.5 mg PO DAILY #30 tabs 08/10/22 [Rx Last Taken Unknown] carvedilol 25 mg tablet 25 mg PO BID #180 tabs 01/11/23 [Rx Last Taken Unknown] Allergy/AdvReac Type Severity Reaction Status Date / Time Sulfa (Sulfonamide Allergy Unknown Unknown Verified 04/26/23 17:53 Antibiotics) Surgical History History of inguinal hernia repair History of left heart catheterization (11/18/16) History of total left knee replacement right hip surgery Social History Smoking Status: Former smoker ROS <FRANKIE Villalobos - Last Filed: 04/26/23 19:40> ROS ED Constitutional Constitutional ED: Denies chills or fever(s) Cardiovascular Cardiovascular: Denies chest pain Respiratory/Chest Respiratory/Chest: Denies cough or dyspnea Gastrointestinal Gastrointestinal: Denies abdominal pain, nausea or vomiting Musculoskeletal Musculoskeletal: Denies arthralgias or myalgias Integumentary Reports Abrasions Neurologic Neurologic: Denies weakness EXAM <FRANKIE Villalobos - Last Filed: 04/26/23 19:40> Physical Exam Const Vital Signs: 04/26/23 17:53 Temperature 97.0 F L Temperature Source Temporal Pulse Rate 66 Respiratory Rate 16 Blood Pressure 113/72 Blood Pressure Mean 85 Pulse Ox 94 Oxygen Delivery Method Room Air Positive well nourished, well developed and no apparent distress General Appearance ED: well developed HEENT Reports normocephalic and head/scalp atraumatic Mouth ED: Yes moist mucous membranes normal Eyes PERRL and EOMs intact bilaterally Neck full ROM and supple Chest Wall inspection of chest normal Resp normal respiratory effort and clear to auscultation bilaterally Cardio regular rate and regular rhythm GI soft to palpation, non-tender, non-distended and no masses Back/Spine normal ROM and normal to inspection Extremity normal to inspection and full ROM Extremity Narrative: 4 cm in diameter skin tear to the left lateral upper arm. No active bleeding. No surrounding erythema, no purulent discharge. No pain to palpation to the entire length of the left arm, full range of motion to the left shoulder, elbow, and wrist. Radial pulse 2+, good capillary refill, sensation intact. Neuro oriented x3, CN's II-XII intact bilaterally, moves all extremities, no focal motor deficits and no sensory deficits noted Sensorium / Orientation: awake and alert Psych mental status grossly normal and thought process normal MDM <FRANKIE Villalobos - Last Filed: 04/26/23 19:40> [facility] MDM Narrative Medical decision making narrative: Patient presenting with a skin tear to his left arm after a mechanical fall that occurred a few days ago. There is no active bleeding but they were concerned as it has had some recurrent bleeding. Not sure when the last tetanus was updated. This will be updated here. Abrasion will be cleaned and dressed in a bandage with bacitracin ointment. He does not have any pain to his arm, there is full range of motion to the left arm, I do not feel that any imaging is indicated at this time. Patient will be educated on signs of infection to look out for and reasons to return. He is to follow-up with PCP and will be discharged home in stable condition. Patient and family are comfortable with plan. <Dr. Juventino Craig, DO - Last Filed: 04/26/23 22:41> [facility] MDM Narrative Medical decision making narrative: Patient presenting with a skin tear to his left arm after a mechanical fall that occurred a few days ago. There is no active bleeding but they were concerned as it has had some recurrent bleeding. Not sure when the last tetanus was updated. This will be updated here. Abrasion will be cleaned and dressed in a bandage with bacitracin ointment. He does not have any pain to his arm, there is full range of motion to the left arm, I do not feel that any imaging is indicated at this time. Patient will be educated on signs of infection to look out for and reasons to return. He is to follow-up with PCP and will be discharged home in stable condition. Patient and family are comfortable with plan. This patient was seen with a PA/COSMETIC ACCOUNT COORDINATOR Individually assessed they patient including history and physical. I have reviewed everything on the chart that is available and agree with the documentation provided by the PA/COSMETIC ACCOUNT COORDINATOR including discussion about the assessment, treatment plan, discussion, and return precautions. Patient presenting with skin tear to the left arm. Patient had residual bleeding but none currently. She is a superficial skin tear and does not require stitches. Patient's wound was cleaned and dressed. No evidence infections but infectious symptoms were discussed with the patient at length. Patient discharged stable condition. Discharge Plan Triage Chief Complaint: Upper Extremity Injury ED Midlevel Provider: Tatiana Chawla ED Provider: Juventino Craig Dx/Rx/DC Orders Clinical Impression: Contusion of arm, left, Skin tear Instructions: ED Abrasion Prescriptions: No Action donepezil [Aricept] 10 mg tablet 10 mg PO QHS memantine 10 mg tablet 10 mg PO BID losartan 50 mg tablet 50 mg PO DAILY aspirin 81 MG tablet,delayed release (DR/EC) 81 mg PO DAILY (DME) BP Machine/Cuff 0 .Route .MEDSUPPLY Qty: 1 0RF Rx Instructions: As directed tamsulosin 0.4 mg capsule 0.4 mg PO DAILY Qty: 90 3RF amlodipine [Norvasc] 2.5 mg tablet 2.5 mg PO DAILY Qty: 30 11RF carvedilol 25 mg tablet 25 mg PO BID Qty: 180 3RF Patient Comments: High blood pressure/heart rate control Primary Care Provider: Chago Pappas Chi Referrals: Chago Pappas Chi, MD [Primary Care Provider] - 5-7 Days Activity Restrictions/Additional Instructions: Follow-up with PCP, return for any worsening of your symptoms. Keep skin tear clean and covered with antibiotic ointment or Vaseline and a bandage to prevent re-injury. Return or follow-up with PCP for any signs of infection. Disposition Disposition: Home, Self Care Discharge Date/Time: 04/26/23 19:32
[2023-04-26] MEDS: Diphth,Pertuss(Acell),Tet Vac 0.5 ML Vial IM (18:51)
== END 2023-04-26 19:32 | disposition home or self-care (01) ==
PROVIDERS: Emergency Provider Student in an Organized Health Care Education/Training Program; PCP Family Medicine Geriatric Medicine; Visit Provider Student in an Organized Health Care Education/Training Program
DX: S40.022A Contusion of left upper arm, initial encounter (principal); I42.9 Cardiomyopathy, unspecified; I50.22 Chronic systolic (congestive) heart failure; I25.10 Atherosclerotic heart disease of native coronary artery without angina pectoris; Z23 Encounter for immunization; Z79.82 Long term (current) use of aspirin; W19.XXXA Unspecified fall, initial encounter; Z87.891 Personal history of nicotine dependence
CPT/HCPCS: 90471; 90715; 99284

== ENCOUNTER → 2023-05-31 | Outpatient (CLI) | payer MEDICARE, SELFPAY ==
--- NOTE | 2023-05-31 15:22 | RAD_ITS ---
STUDY: X-RAY - LUMBAR SPINE REASON FOR EXAM: Male, 87 years old. FALL TECHNIQUE: 4 view(s) of the lumbar spine were obtained. COMPARISON: None FINDINGS: Normal lumbar lordosis. There is no substantial scoliosis. There is a normal alignment of the vertebrae. There is diffuse demineralization with multi-level endplate spondylosis. There is multi-level degenerative disc disease with multi-level disc space narrowing. There is no demonstrated acute fracture in the lumbar spine. There is a chronic compression fracture affecting the superior endplate of T11.. There is no demonstrated spondylolysis of the pars interarticulares. The soft tissue structures are unremarkable. RAD/L/S Spine Min 4 Views IMPRESSION: Degenerative changes of the spine, as detailed above. Electronically Signed: Margarito Hobson MD at 16:17 EST ,
--- NOTE | 2023-05-31 15:30 | RAD_ITS ---
STUDY: X-RAY - LEFT SHOULDER REASON FOR EXAM: Male, 87 years old. Pain after a fall TECHNIQUE: 4 view(s) of the shoulder. COMPARISON: None. FINDINGS: There is severe degenerative arthrosis of the glenohumeral articulation with cephalad migration of the humeral head relative to the glenoid suggesting chronic rotator cuff tear.. There is hypertrophic osteoarthrosis of the acromioclavicular joint with inferior osseous spur formation. Normal acromion. There is demineralization of the humerus and visualized osseous structures. Diffuse extra-articular calcifications suggest sequela from previous trauma There are minimally displaced posterior left sixth seventh and eighth rib fractures without pneumothorax RAD/Shoulder min 2 Views IMPRESSION: End-stage glenohumeral and acromioclavicular joint arthrosis with cephalad migration of the humeral head relative to the glenoid consistent with chronic rotator cuff tear. There are extra articular calcifications likely sequela from previous trauma but no demonstrated fracture in the clavicle, humeral head or scapula. Diffuse osteopenia Minimally displaced left posterior sixth seventh and eighth rib fractures Electronically Signed: Margarito Hobson MD at 16:22 EST ,
--- OUTSIDE RECORDS SUMMARY | 2023-05-31 17:26 | XMS RPT_ITS | CCD ---
Author Name Unknown Address [address] [place] [address] Organization [facility] Care Team Providers Care Reserve Operator Name Role Phone Eli GOODSON, Brii Chanel Unavailable Unavailable MD Freddy, Yordy Estevez Unavailable Nettie Mari Unavailable Unavailable Onofre Bowens Unavailable Unavailable KELLEE Justice, Aretha Dale Unavailable Tomi Justice RN, Aretha Dale Unavailable Tomi Hayes MD, Yordy Estevez Unavailable KELLEE Justice, Nettie López Unavailable Unavailable Allergies Allergy Classification Reported Allergen(s) Allergy Type Date of Onset Reaction(s) Facility (10 sources) Sulfonamides (Antibiotic) drug allergy edema [facility] Work Phone: Medications Completed/Discontinued Medications Medication Drug Class(es) Dates Sig (Normalized) Sig (Original) AMLODIPINE BESY-BENAZEPRIL HCL (20 sources) Dihydropyridine Calcium Channel Timbo, Angiotensin Converting Enzyme Inhibitor Start: 06-17-2011 take 1 tablet by mouth once daily LOTREL 10-20 MG CAPS One tablet by mouth daily AMLODIPINE BESY-BENAZEPRIL HCL [id number] Marianne Jackson Problems Active Problems Problem Classification Problem Date Documented Da te Episodic/Chronic Congestive heart failure; nonhypertensive (20 sources) Congestive heart failure; Translations: [Chronic systolic (congestive) heart failure] Onset: 01-16-2014 01-16-2014 Chronic Essential hypertension (10 sources) Hypertensive disorder; Translations: [Essential (primary) hypertension] Onset: 02-11-2014 02-11-2014 Chronic Other nervous system disorders (10 sources) Carpal tunnel syndrome; Translations: [Carpal tunnel syndrome, right upper limb] 06-17-2011 Chronic Tessa-; endo-; and myocarditis; cardiomyopathy (20 sources) Dilated cardiomyopathy; Translations: [Cardiomyopathy] Onset: 01-18-2014 04-19-2016 Chronic Unclassified (8 sources) Long-term drug therapy; Translations: [Long-term (current) use of other medications] Onset: 02-11-2014 02-11-2014 Unclassified (1 source) Finding of body mass index; Translations: [Body mass index (BMI) 26.0-26.9, adult] Onset: 06-11-2014 06-11-2014 Past or Other Problems Problem Classification Problem Date Documented Date Episodic/Chronic Malaise and fatigue (20 sources) Fatigue; Translations: [Other fatigue] Onset: 01-16-2014 Resolved: 04-19-2016 04-19-2016 Episodic Nonspecific chest pain (20 sources) Chest pain, unspecified; Translations: [Chest pain, unspecified] Onset: 01-16-2014 Resolved: 09-24-2015 09-24-2015 Episodic Other aftercare (12 sources) Long-term (current) use of other medications; Translations: [Other exterminator helper (current) drug therapy] Onset: 02-11-2014 02-11-2014 Episodic Other lower respiratory disease (20 sources) Dyspnea; Translations: [Shortness of breath] Onset: 01-16-2014 Resolved: 04-19-2016 01-16-2014 Episodic Other nutritional; endocrine; and metabolic disorders (9 sources) Body mass index (BMI) 26.0-26.9, adult; Translations: [Body mass index (BMI) 26.0-26.9, adult] Onset: 06-11-2014 06-11-2014 Episodic Other screening for suspected conditions (not mental disorders or infectious disease) (5 sources) Echocardiogram abnormal; Translations: [Abnormal findings on diagnostic imaging of heart and coronary circulation] Onset: 11-10-2016 11-10-2016 Episodic Results Test Name Value Interpretation Reference Range Facil ity Vital Signs Date Time Vital Sign Value Performing Clinician Bang phelps 11-15-2016 12:46-0400 Heart rate 69 /min [facility] Work Phone: 10-26-2016 12:51-0400 BMI (Body Mass Index) 27.6 kg/m2 [facility] Work Phone: 10-26-2016 12:51-0400 Body weight 77.57 kg [facility] Work Phone: 10-26-2016 12:51-0400 BP Diastolic 50 mm[Hg] [facility] Work Phone: 10-26-2016 12:51-0400 BP Systolic 102 mm[Hg] [facility] Work Phone: 10-26-2016 12:51-0400 Height 167.64 cm [facility] Work Phone: 10-26-2016 12:51-0400 Pulse (Heart Rate) 66 /min [facility] Work Phone: 10-26-2016 12:51-0400 Respiratory Rate 18 /min [facility] Work Phone: 10-26-2016 12:51-0400 Weight 77.57 kg Nett[facility] Work Phone: 04-19-2016 14:14-0500 BMI (Body Mass Index) 27.27 kg/m2 [facility] Work Phone: 04-19-2016 14:14-0500 BP Diastolic 70 mm[Hg] [facility] Work Phone: 04-19-2016 14:14-0500 BP Systolic 130 mm[Hg] [facility] Work Phone: 04-19-2016 14:14-0500 BSA (Body Surface Area) 1.86 m2 [facility] Work Phone: 04-19-2016 14:14-0500 Pulse (Heart Rate) 72 /min [facility] Work Phone: 04-19-2016 14:14-0500 Respiratory Rate 20 /min [facility] Work Phone: 04-19-2016 14:14-0500 Weight 76.66 kg Aretha Justice RN [facility] Work Phone: 09-30-2015 10:46-0400 Height 167.64 cm Aretha Justice RN [facility] Work Phone: Procedures Date Procedure Procedure Detail Performing Clinician Start: 11-15-2016 End: 11-15-2016 Nurse, Teaching, Wound Check (no charge) Yordy Hayes MD Work Phone: Start: 11-10-2016 End: 11-15-2016 *BMP Yordy Hayes MD Work Phone: Start: 11-10-2016 End: 11-15-2016 aPTT Yordy Hayes MD Work Phone: Start: 11-10-2016 End: 11-15-2016 CBC W Auto Differential panel - Blood Yordy Hayes MD Work Phone: Start: 11-10-2016 End: 11-15-2016 Chest x-ray Yordy Hayes MD Work Phone: Start: 11-10-2016 End: 11-15-2016 Coagulation factor induced.INR assay in platelet poor plasma Yordy Hayes MD Work Phone: Start: 11-10-2016 End: 11-15-2016 Electrocardiogram, complete Yordy hernandez MD Work Phone: Start: 11-10-2016 End: 06-21-2017 Left Heart Cath Yordy Hayes MD Work Phone: Start: 10-26-2016 End: 10-26-2016 Dietary management education, guidance, and counseling Nettie Mari Start: 10-26-2016 End: 10-26-2016 Documentation of current medications Nettie Mari Start: 10-26-2016 End: 10-26-2016 DJN Yordy Hayes MD Work Phone: Start: 10-26-2016 End: 11-10-2016 Echocardiography Yordy Hayes MD Work Phone: Start: 10-26-2016 End: 10-26-2016 Follow Up Appt 6 months Yordy Hayes MD Work Phone: Start: 04-19-2016 End: 04-19-2016 CARI Hayes MD Work Phone: Start: 04-19-2016 End: 04-19-2016 Follow Up Appt 6 months Yordy Hayes MD Work Phone: Start: 09-30-2015 End: 09-30-2015 CARI Hayes MD Work Phone: Start: 09-30-2015 End: 09-30-2015 Follow Up Appt 6 months Yordy Hayes MD Work Phone: Start: 09-30-2015 End: 09-30-2015 Follow Up BP Check Yordy Hayes MD Work Phone: Start: 04-01-2015 End: 09-22-2015 Cardiac Rehab Yordy Hayes MD Work Phone: Start: 04-01-2015 End: 09-22-2015 CARI Hayes MD Work Phone: Start: 04-01-2015 End: 04-02-2015 Documentation of current medications Yordy Hayes MD Work Phone: Start: 04-01-2015 End: 04-09-2015 Echocardiography Yordy Hayes MD Work Phone: Start: 04-01-2015 End: 09-22-2015 Follow Up Appt 6 months Yordy Hayes MD Work Phone: Start: 09-09-2014 End: 03-26-2015 Cardiac Rehab Yordy Hayes MD Work Phone: Start: 09-09-2014 End: 09-09-2014 CARI Hayes MD Work Phone: Start: 09-09-2014 End: 09-10-2014 Documentation of current medications Yordy Hayes MD Work Phone: Start: 09-09-2014 End: 09-09-2014 Follow Up Appt 6 months Yordy Hayes MD Work Phone: Start: 06-13-2014 End: 06-14-2014 Echocardiography Yordy Hayes MD Work Phone: Start: 06-11-2014 End: 06-13-2014 *BMP Daniela Samaniego PA-C Work Phone: Start: 06-11-2014 End: 06-13-2014 CBC W Auto Differential panel - Blood Daniela Samaniego PA-C Work Phone: Start: 06-11-2014 End: 06-13-2014 Follow Up Appt Other Daniela acosta PA-C Work Phone: Start: 04-23-2014 End: 08-08-2014 Cardiac Rehab Yordy Hayes MD Work Phone: Start: 02-12-2014 End: 04-08-2014 *Microalbumin, Creatine Ratio, rand urine Yordy Hayes MD Work Phone: Start: 02-11-2014 End: 02-12-2014 *BMP Yordy Hayes MD Work Phone: Start: 02-11-2014 End: 02-11-2014 *Microalbumin, Creatine Ratio, rand urine Yordy Hayes MD Work Phone: Start: 02-11-2014 End: 02-11-2014 Cardiac Rehab Yordy Hayes MD Work Phone: Start: 02-11-2014 End: 02-11-2014 DJN Yordy Hayes MD Work Phone: Start: 02-11-2014 End: 02-11-2014 Follow Up Appt 6 months Yordy Hayes MD Work Phone: Start: 02-11-2014 End: 02-11-2014 Follow Up BP Check Yordy Hayes MD Work Phone: Plan of Treatment Date Care Activity Detail Author Start: 06-02-2017 End: 06-02-2017 Appointment Appointment [facility] Work Phone: Start: 11-15-2016 End: 11-15-2016 Appointment Appointment [facility] Work Phone: Start: 11-10-2016 End: 11-15-2016 *BMP *BMP [facility] Work Phone: Start: 11-10-2016 End: 11-15-2016 aPTT *PTT-Partial Thromboplastin Time [facility] Work Phone: Start: 11-10-2016 End: 11-15-2016 aPTT Coag time (PPP) *PTT-Partial Thromboplastin Time [facility] Work Phone: Start: 11-10-2016 End: 11-15-2016 CBC W Auto Differential panel - Blood *CBC without Diff [facility] Work Phone: Start: 11-10-2016 End: 11-15-2016 Chest x-ray X-Ray, Chest, PA & Lateral [facility] Work Phone: Start: 11-10-2016 End: 11-15-2016 Coagulation factor induced.INR assay in platelet poor plasma *PT/INR [facility] Work Phone: Start: 11-10-2016 End: 11-15-2016 Electrocardiogram, complete EKG (In office) [facility] Work Phone: Start: 11-10-2016 End: 11-15-2016 Left Heart Cath Left Heart Cath [facility] Work Phone: Start: 10-26-2016 End: 10-26-2016 Appointment Appointment [facility] Work Phone: Start: 10-26-2016 End: 10-26-2016 CARI ALCALA [facility] Work Phone: Start: 10-26-2016 End: 10-26-2016 Echocardiography Echocardiogram (complete) [facility] Work Phone: Start: 10-26-2016 End: 10-26-2016 Follow Up Appt 6 months Follow Up Appt 6 months [facility] Work Phone: Start: 04-19-2016 End: 04-19-2016 CARI ALCALA [facility] Work Phone: Start: 04-19-2016 End: 04-19-2016 Follow Up Appt 6 months Follow Up Appt 6 months [facility] Work Phone: Start: 09-30-2015 End: 09-30-2015 DJN DJN [facility] Work Phone: Start: 09-30-2015 End: 09-30-2015 Follow Up Appt 6 months Follow Up Appt 6 months [facility] Work Phone: Start: 09-30-2015 End: 09-30-2015 Follow Up BP Check Follow Up BP Check [facility] Work Phone: Start: 04-01-2015 End: 04-01-2015 Cardiac Rehab Cardiac Rehab [address] [place], [address] [facility] Work Phone: Start: 04-01-2015 End: 09-22-2015 CARI CARI [facility] Work Phone: Start: 04-01-2015 End: 04-01-2015 Echocardiography Echocardiogram (complete) [facility] Work Phone: Start: 04-01-2015 End: 09-22-2015 Follow Up Appt 6 months Follow Up Appt 6 months [facility] Work Phone: Start: 09-09-2014 End: 10-16-2014 Cardiac Rehab Cardiac Rehab [facility], [address] [place], [address] [facility] Work Phone: Start: 09-09-2014 End: 09-09-2014 DJN CARI [facility] Work Phone: Start: 09-09-2014 End: 09-09-2014 Follow Up Appt 6 months Follow Up Appt 6 months [facility] Work Phone: Start: 06-17-2014 End: 02-11-2014 Echocardiography Echocardiogram (complete) [facility] Work Phone: Start: 06-11-2014 End: 06-13-2014 *BMP *BMP [facility] Work Phone: Start: 06-11-2014 End: 06-13-2014 CBC W Auto Differential panel - Blood *CBC without Diff [facility] Work Phone: Start: 06-11-2014 End: 06-13-2014 Follow Up Appt Other Follow Up Appt Other [facility] Work Phone: Start: 04-23-2014 End: 08-08-2014 Cardiac Rehab Cardiac Rehab [facility], [address] [place] [address], [id number] [facility] Work Phone: Start: 03-25-2014 End: 02-12-2014 *Microalbumin, Creatine Ratio, rand urine *Microalbumin, Creatine Ratio, rand urine [facility] Work Phone: Start: 02-11-2014 End: 02-12-2014 *BMP *BMP [facility] Work Phone: Start: 02-11-2014 End: 02-11-2014 *Microalbumin, Creatine Ratio, rand urine *Microalbumin, Creatine Ratio, rand urine [facility] Work Phone: Start: 02-11-2014 End: 02-11-2014 Cardiac Rehab Cardiac Rehab [facility] Work Phone: Start: 02-11-2014 End: 02-11-2014 DJN DJN [facility] Work Phone: Start: 02-11-2014 End: 02-11-2014 Follow Up Appt 6 months Follow Up Appt 6 months [facility] Work Phone: Start: 02-11-2014 End: 02-11-2014 Follow Up BP Check Follow Up BP Check [facility] Work Phone: Patient Education Carvedilol%20( Oral)%20(Ca psule,%20Extended%20Relea se,%20Tablet) [facility] Work Phone: Additional Source Comments FOR RECORDS PERTAINING TO PATIENTS WHO ARE OR HAVE BEEN ENROLLED IN A CHEMICAL DEPENDENCY/SUBSTANCEABUSE PROGRAM, SOME INFORMATION MAY BE OMITTED. This clinical summary was aggregated from multiple sources. Caution should be exercised in using it in the provision of clinical care. This summary normalizes information from multiple sources, and as a consequence, information in this document may materially change the coding, format and clinical context of patient data. In addition, data may be omitted in some cases. CLINICAL DECISIONS SHOULD BE BASED ON THE PRIMARY CLINICAL RECORDS. [facility] [employer] [facility]. provides no warranty or guarantee of the accuracy or completeness of information in this document.
== END | disposition home or self-care (01) ==
LOC: RAD 15:21
PROVIDERS: PCP Family Medicine Geriatric Medicine; Referring Provider Family Medicine Geriatric Medicine; Visit Provider Family Medicine Geriatric Medicine
DX: S23.29XA Dislocation of other parts of thorax, initial encounter (principal); W19.XXXA Unspecified fall, initial encounter
CPT/HCPCS: 72110; 73030

== ENCOUNTER → 2023-07-27 | Outpatient (CLI) | payer MEDICARE, SELFPAY ==
--- NOTE | 2023-07-27 13:55 | ART_ITS ---
Reason For Study: PVD Procedure A bilateral lower extremity continuous wave Doppler with analog waveform analysis and ankle brachial indexes. Left Segmental Pressures Left brachial= 152mmHg. Left posterior tibial artery = >254mmHg. Left dorsalis pedis artery = 155mmHg. Left digit = 83 mmHg. The left posterior tibial artery waveforms are triphasic. The left dorsalis pedis waveforms are triphasic. Right Segmental Pressures Right brachial= 149mmHg. Right posterior tibial artery = >254mmHg. Right dorsalis pedis artery = 196mmHg. Right digit = 104 mmHg. The right posterior tibial artery waveforms are triphasic. The right dorsalis pedis waveforms are triphasic. Indices The right ankle brachial index by the posterior tibial artery is N/C. The right ankle brachial index by the dorsalis pedis is 1.29. The right digital-brachial index is 0.68. The left ankle brachial index by the posterior tibial artery is N/C. The left ankle brachial index by the dorsalis pedis is 1.02. The left digital-brachial index is 0.55. VL/Ankle Brachial Index Interpretation Summary The right ankle-brachial posterior tibial index not calculable while the dorsal is pedis [place] is 1.29. The right PT and DP Doppler waveforms are normal triphasic The right digital brachial index is borderline normal at 0.68 The left lower extremity posterior tibial ankle-brachial indicis not palpable d ue to artificially elevated systolic pressure. The left ankle-brachial index for the dorsalis pedi s is normal at 1.02. The left posterior tibial and dorsalis pedis have normal triphasic Doppler wave forms The left digital brachial index is abnormal at 0.55 Findings would suggest medial calcification of vessel wall. Critical ischemia i s not identified bilaterally. Ordering Physician: Chago Pappas Chi Referring Physician: CHAGO PAPPAS CHI, MD Performed By: Johnathan Myers RVT
== END | disposition home or self-care (01) ==
LOC: CVS 13:53
PROVIDERS: PCP Family Medicine Geriatric Medicine; Referring Provider Family Medicine Geriatric Medicine; Visit Provider Family Medicine Geriatric Medicine
DX: I73.9 Peripheral vascular disease, unspecified (principal)
CPT/HCPCS: 93922

== ENCOUNTER → 2023-08-31 | Outpatient (CLI) | payer MEDICARE, SELFPAY ==
[2023-08-31 16:20] LABS: Absolute Lymphocyte Count 1.36 X10^3/uL (0.83-4.51); Absolute Neutrophil Count 5.1 X10^3/uL (2.0-7.7); Basophil# 0.04 X10^3/uL; Basophil% 0.6 % (0-1); Eosinophils% 1.4 % (0-5); Hematocrit 35.5 % (40-54); Hemoglobin 10.9 g/dL (13.0-16.5); Lymphocyte # 1.36 X10^3/ul (0.83-4.51); Lymphocyte % 18.7 % (19-41); Mean Corp Hgb Conc 30.7 g/dL (32-36); Mean Corpuscular Hgb 27.6 pg (27.0-32.0); Mean Corpuscular Volume 89.9 fL (80-94); Mean Platelet Vol. 9.7 fl (6.2-12.0); Monocyte# 0.69 X10^3/uL; Monocyte% 9.5 % (0-10); NRBC Flagged by Analyzer 0 % (0-5); Neutrophil # 5.05 X10^3/uL (2.7-7.7); Neutrophil % 69.4 % (47-70); Platelet Count 248 K/mm3 (150-450); RBC Distribution Width CV 15.3 % (11.6-14.6); RBC Distribution Width SD 50.9 fl (35.1-43.9); Red Blood Count 3.95 M/mm3 (4.6-6.2); White Blood Count 7.3 K/mm3 (4.4-11.0)
[2023-08-31 16:32] LABS: Vitamin D,25 Hydroxy 56.6 ng/mL
[2023-08-31 16:38] LABS: ALB/GLOB Ratio 0.9 RATIO (0.9-2.4); AST(SGOT) 14 U/L (15-37); Alanine Aminotransfer ALT/SGPT 16 U/L (16-61); Albumin, Serum 2.9 g/dL (3.2-5.0); Alkaline Phosphatase 108 U/L (45-117); Anion Gap 0 (5-15); BUN 32 mg/dL (7-18); BUN/Creat Ratio 20.8 RATIO (10-20); Calcium,Total 8.6 mg/dL (8.5-10.1); Chloride 112 mmol/L (98-107); Creatinine, Serum 1.54 mg/dL (0.70-1.30); EST Glomerular Filtration Rate 46 mL/min (>60); Est Glom Filt Rate - Afr Amer 55 mL/min (>60); Globulin 3.4 g/dL (2.2-4.2); Glucose 160 mg/dL (74-106); Potassium 4.2 mmol/L (3.5-5.1); Protein, Total 6.3 g/dL (6.4-8.2); Sodium Level 141 mmol/L (136-145); Uric Acid 7.1 mg/dL (3.5-7.2)
== END | disposition home or self-care (01) ==
LOC: POLAB3 14:59
PROVIDERS: PCP Family Medicine Geriatric Medicine; Visit Provider Family Medicine Geriatric Medicine
DX: I10 Essential (primary) hypertension (principal); E55.9 Vitamin D deficiency, unspecified; M10.9 Gout, unspecified
CPT/HCPCS: 36415; 80053; 82306; 84443; 84550; 85025

== ENCOUNTER → 2023-10-19 | Outpatient (CLI) | payer MEDICARE, SELFPAY | END | disposition home or self-care (01) | LOC: LAB.FUTURE 11:24 | PROVIDERS: PCP Family Medicine Geriatric Medicine; Visit Provider Family Medicine Geriatric Medicine | DX: E78.5 Hyperlipidemia, unspecified (principal); I10 Essential (primary) hypertension; R63.4 Abnormal weight loss; Z12.5 Encounter for screening for malignant neoplasm of prostate ==

== ENCOUNTER → 2023-11-07 | Outpatient (CLI) | payer MEDICARE, SELFPAY | END | disposition home or self-care (01) | LOC: LABSPEC 13:14 | PROVIDERS: PCP Family Medicine Geriatric Medicine; Referring Provider Family Medicine Geriatric Medicine; Visit Provider Family Medicine Geriatric Medicine | DX: Z12.5 Encounter for screening for malignant neoplasm of prostate (principal); E78.5 Hyperlipidemia, unspecified; I10 Essential (primary) hypertension; R63.4 Abnormal weight loss | CPT/HCPCS: 82274 ==

== ENCOUNTER → 2023-11-21 | Outpatient (CLI) | payer MEDICARE, SELFPAY ==
[2023-11-21 12:21] LABS: Anion Gap 4 (5-15); BUN 22 mg/dL (7-18); BUN/Creat Ratio 15.2 RATIO (10-20); Calcium,Total 8.7 mg/dL (8.5-10.1); Chloride 112 mmol/L (98-107); Creatinine, Serum 1.45 mg/dL (0.70-1.30); EST Glomerular Filtration Rate 49 mL/min (>60); Est Glom Filt Rate - Afr Amer 59 mL/min (>60); Glucose 127 mg/dL (74-106); Sodium Level 143 mmol/L (136-145)
== END | disposition home or self-care (01) ==
PROVIDERS: PCP Family Medicine Geriatric Medicine; Referring Provider Family Medicine Geriatric Medicine; Visit Provider Nurse Practitioner Family
DX: R60.9 Edema, unspecified (principal); I42.9 Cardiomyopathy, unspecified
CPT/HCPCS: 36415; 80048

== ENCOUNTER 2023-11-23 14:43 | Emergency (ER) | payer MEDICARE, SELFPAY ==
[2023-11-23 14:44] VITALS: BP 132/58; PULSE 62; RESP 14; TEMP 36.4; O2SAT 98
--- NOTE | 2023-11-23 19:22 | ED.RN ---
This is fucking ridiculous I'm not waiting any longer Pt has left department with family.
== END 2023-11-23 19:18 | disposition left against medical advice (07) ==
LOC: ED 19:25
PROVIDERS: PCP Family Medicine Geriatric Medicine
DX: Z53.21 Procedure and treatment not carried out due to patient leaving prior to being seen by health care provider (principal)

== ENCOUNTER → 2023-11-29 | Outpatient (CLI) | payer MEDICARE, SELFPAY ==
--- NOTE | 2023-11-29 12:08 | VDLE_ITS ---
Reason For Study: swelling RIGHT LEFT GSV is normal. CFV is compressible, spontaneous, phasic, CFV is compressible, spontaneous, phasic, competent, and demonstrates normal competent and demonstrates normal augmentation. augmentation. FV is compressible, spontaneous, phasic, competent and demonstrates normal augmentation. POP V is compressible, spontaneous, phasic, competent and demonstrates normal augmentation. T/P Trunk is compressible. PTV is compressible. RT PerV is compressible. Procedure This is a venous duplex using B-mode, color flow and spectral Doppler. Exam performed in department. The exam was diagnostic. A preliminary report was called and/or faxed to Dr. Pappas. VL/Venous Duplex US, Unilateral Interpretation Summary Deep veins of the right lower extremity are patent and compressible segmentally . There is no evidence of right lower extremity deep vein thrombosis. The right great sapheno us vein appears patent and compressible segmentally. Ordering Physician: Chago Pappas Chi Performed By: Daniel Morgan RVT
[2023-11-29 12:51] LABS: Absolute Lymphocyte Count 1.92 X10^3/uL (0.83-4.51); Absolute Neutrophil Count 5.7 X10^3/uL (2.0-7.7); Basophil# 0.05 X10^3/uL; Basophil% 0.6 % (0-1); Eosinophil# 0.21 X10^3/uL; Eosinophils% 2.3 % (0-5); Hematocrit 31.3 % (40-54); Hemoglobin 9.7 g/dL (13.0-16.5); Lymphocyte # 1.92 X10^3/ul (0.83-4.51); Lymphocyte % 21.1 % (19-41); Mean Corpuscular Volume 83.9 fL (80-94); Mean Platelet Vol. 9.5 fl (6.2-12.0); Monocyte# 1.17 X10^3/uL; Monocyte% 12.9 % (0-10); NRBC Flagged by Analyzer 0 % (0-5); Neutrophil # 5.68 X10^3/uL (2.7-7.7); Neutrophil % 62.5 % (47-70); Platelet Count 273 K/mm3 (150-450); RBC Distribution Width CV 14.6 % (11.6-14.6); RBC Distribution Width SD 45.1 fl (35.1-43.9); Red Blood Count 3.73 M/mm3 (4.6-6.2); White Blood Count 9.1 K/mm3 (4.4-11.0)
[2023-11-29 12:57] LABS: ALB/GLOB Ratio 0.8 RATIO (0.9-2.4); AST(SGOT) 15 U/L (15-37); Alanine Aminotransfer ALT/SGPT 18 U/L (16-61); Alkaline Phosphatase 115 U/L (45-117); Anion Gap 5 (5-15); BUN 24 mg/dL (7-18); BUN/Creat Ratio 16.2 RATIO (10-20); Calcium,Total 8.8 mg/dL (8.5-10.1); Chloride 107 mmol/L (98-107); Creatinine, Serum 1.48 mg/dL (0.70-1.30); EST Glomerular Filtration Rate 48 mL/min (>60); Est Glom Filt Rate - Afr Amer 58 mL/min (>60); Globulin 3.8 g/dL (2.2-4.2); Glucose 131 mg/dL (74-106); Potassium 3.8 mmol/L (3.5-5.1); Protein, Total 6.8 g/dL (6.4-8.2); Sodium Level 139 mmol/L (136-145); Thyroid Stim Hormone (TSH) 2.73 uIU/mL (0.358-3.74)
[2023-11-29 15:37] LABS: M R Staph aureus DNA By PCR Negative (Negative); Probe Check PASS; Specimen Processing Control PASS; Staph aureus DNA By PCR POSITIVE (Negative)
== END | disposition home or self-care (01) ==
LOC: CVS 11:48
PROVIDERS: PCP Family Medicine Geriatric Medicine; Visit Provider Family Medicine Geriatric Medicine
DX: I10 Essential (primary) hypertension (principal); L03.113 Cellulitis of right upper limb; B95.62 Methicillin resistant Staphylococcus aureus infection as the cause of diseases classified elsewhere; M79.89 Other specified soft tissue disorders
CPT/HCPCS: 36415; 80053; 84443; 85025; 87070; 87075; 87077; 87186; 87205; 87640; 93971

== ENCOUNTER 2023-12-26 10:04 | Outpatient (CLI) | payer MEDICARE, SELFPAY ==
[2023-12-26] MEDS: 0.9% Normal Saline (1000mL) 1,000 ML 999 ML IV ×2 (10:35→11:42)
[2023-12-26 10:40] LABS: Absolute Lymphocyte Count 1.39 X10^3/uL (0.83-4.51); Absolute Neutrophil Count 5.6 X10^3/uL (2.0-7.7); Basophil# 0.04 X10^3/uL; Basophil% 0.5 % (0-1); Eosinophil# 0.26 X10^3/uL; Eosinophils% 3.1 % (0-5); Hematocrit 32.5 % (40-54); Hemoglobin 9.9 g/dL (13.0-16.5); Lymphocyte # 1.39 X10^3/ul (0.83-4.51); Lymphocyte % 16.8 % (19-41); Mean Corp Hgb Conc 30.5 g/dL (32-36); Mean Corpuscular Hgb 26.1 pg (27.0-32.0); Mean Corpuscular Volume 85.5 fL (80-94); Mean Platelet Vol. 9.3 fl (6.2-12.0); Monocyte% 12.1 % (0-10); NRBC Flagged by Analyzer 0 % (0-5); Neutrophil # 5.56 X10^3/uL (2.7-7.7); Neutrophil % 67.3 % (47-70); Platelet Count 243 K/mm3 (150-450); RBC Distribution Width CV 17.3 % (11.6-14.6); RBC Distribution Width SD 53.2 fl (35.1-43.9); White Blood Count 8.3 K/mm3 (4.4-11.0)
[2023-12-26] MEDS: 0.9% NaCl Peripheral Flush Adult/Peds IV (10:43)
[2023-12-26 10:44] VITALS: BP 128/54; PULSE 54; RESP 16; TEMP 36.3; O2SAT 97; BMI 22.6
[2023-12-26 11:12] LABS: ALB/GLOB Ratio 0.8 RATIO (0.9-2.4); AST(SGOT) 16 U/L (15-37); Alanine Aminotransfer ALT/SGPT 15 U/L (16-61); Albumin, Serum 2.9 g/dL (3.2-5.0); Alkaline Phosphatase 96 U/L (45-117); Anion Gap 3 (5-15); BUN 22 mg/dL (7-18); BUN/Creat Ratio 13.8 RATIO (10-20); Calcium,Total 8.6 mg/dL (8.5-10.1); Chloride 110 mmol/L (98-107); EST Glomerular Filtration Rate 44 mL/min (>60); Est Glom Filt Rate - Afr Amer 53 mL/min (>60); Estimated Creatinine Clearance 31.73 ml/min; Globulin 3.7 g/dL (2.2-4.2); Glucose 139 mg/dL (74-106); Potassium 4.1 mmol/L (3.5-5.1); Protein, Total 6.6 g/dL (6.4-8.2); Sodium Level 139 mmol/L (136-145); Thyroid Stim Hormone (TSH) 3.08 uIU/mL (0.358-3.74)
== END 2023-12-26 23:59 | disposition home or self-care (01) ==
PROVIDERS: PCP Family Medicine Geriatric Medicine; Referring Provider Family Medicine Geriatric Medicine; Visit Provider Family Medicine Geriatric Medicine
DX: E86.0 Dehydration (principal); R53.83 Other fatigue; N39.0 Urinary tract infection, site not specified
CPT/HCPCS: 96360; 96361; 36415; 80053; 84443; 85025; 87077; 87086; 87088; 87186; J7030; A4216

== ENCOUNTER → 2024-01-18 | Outpatient (CLI) | payer MEDICARE, SELFPAY ==
--- NOTE | 2024-01-18 08:40 | RAD_ITS ---
STUDY: X-RAY - ESOPHAGUS (BARIUM SWALLOW) WITH FLUOROSCOPY REASON FOR EXAM: Male, 88 years old. Dysphagia TECHNIQUE: 97 fluoroscopic view(s) of the esophagus were obtained following swallowing of barium. FLUOROSCOPY TIME (if supplied): (1 minute and 3 seconds) minutes/seconds. 14.9 mGy. COMPARISON: None. FINDINGS: There is no demonstrated esophageal foreign body. Circumferential narrowing of the distal esophagus. Endoscopic correlation recommended. Small hiatal hernia without gastroesophageal junction. The patient ingested a 12 mm tablet of barium. The tablet is trapped in the distal esophagus at the level of the narrowing. There is atherosclerotic calcification of the aortic arch with tortuosity of the descending aorta. Normal visualized pulmonary parenchyma. There are diffuse degenerative changes of the visualized thoracic spine. RAD/Esophagus Dual Contrast IMPRESSION: Narrowing in the distal esophagus just proximal to the hiatal hernia with trapping of the 12 mm tablet of barium. Endoscopic correlation recommended. Electronically Signed: Guanaco Love MD at 10:41 EDT ,
== END | disposition home or self-care (01) ==
LOC: RAD 08:28
PROVIDERS: PCP Family Medicine Geriatric Medicine; Referring Provider Internal Medicine; Visit Provider Internal Medicine
DX: R13.10 Dysphagia, unspecified (principal)
CPT/HCPCS: 74221

== ENCOUNTER 2024-02-28 12:22 | Day surgery (SDC) | payer MEDICARE, SELFPAY ==
[2024-02-28] VITALS (10 sets, daily range): BP systolic 85–135; BP diastolic 56–73; PULSE 50–91; RESP 16–20; TEMP 35.8–36.4; O2SAT 89–96; BMI 23.3
--- NOTE | 2024-02-28 13:07 | SUR.PREOP ---
NEPHEW DOES NOT KNOW MEDICATIONS OR WHEN THEY WERE TAKEN LAST. HE KNOWS THAT IRON AND ASPRIN WERE NOT TAKING FOR AT LEAST 2 DAYS.
--- NOTE | 2024-02-28 13:30 | EGD_PTH ---
PATIENT: AUSTIN BENNETT LOC: [facility] U#:[id number] AGE/SX: 88/M ROOM: RE02/28/[address]: Dr. Oli Cordova DO : 1935 BED: DIS: 02/28/2024 SPEC #: [id number] RECD: 02/28/24 18:06 STATUS: HILARIO REVentura #: [id number] JUAN: 02/28/24 13:[address]: Oli Cordova DEPT: SURGICAL PATHOLOGY RECD BY: Selene Gan ENTERED: 02/29/24 13:05 SP TYPE: EGD BIOPSY ZAHRA DR: Dr. Chago Pappas MD Tissues: Esophagus, NOS Procedures: Special Stain Group I Surgery Specimen Level IV Alcian Blue/PAS (control) HEADER OPERATION: EGD, biopsy, dilatation PRE-OP DIAGNOSIS: Dysphagia TISSUE SUBMITTED: Distal esophagus biopsy MICROSCOPIC DIAGNOSIS Distal esophagus, biopsy: Fragments of gastroesophageal mucosa with moderate chronic inflammation and mild acute inflammation. Intestinal metaplasia (goblet cell metaplasia) not identified. Focal parakeratosis. See comment. 03/01/2024 COMMENT Alcian blue/PAS stain with matched control is used in the evaluation of the specimen. MICROSCOPIC DESCRIPTION Slides are reviewed. GROSS DESCRIPTION Received in fixative is one container labeled with the patient's name and designated Distal esophagus biopsy. The specimen consists of multiple irregular fragments of light soler soft tissue that in aggregate measure 1.0 x 1.0 x 0.2 cm. The specimen is totally submitted in one cassette. 02/29/2024 TC:3 CPT:79947,71533
--- NOTE | 2024-02-28 13:32 | PRE.ANES_ITS ---
ASA Classification* ASA Classification ASA Classification: 4 Assessment & Plan Anesthesia* Anesthesia Assessment Anesthesia Assessment: Discussed sedation and/or anesthesia options, risks, benefits, and alternatives with patient/parents/legal guardian/POA. Questions invited. The patient/parents/legal guardian/POA seems to understand and agrees to proceed with anesthesia plan. Reviewed the physical assessment, medical history, allergy history and patient home medications list prior to surgery/procedure/anesthetic and documented any changes. Performed airway and anesthesia risk assessments. Anesthesia Type Anesthesia Type: MAC (see written pre anesthesia record for full assessment) Anesthesia Focused Assessment* Temperature: 96.9 F Pulse Rate: 50 Blood Pressure: 135/56 Respiratory Rate: 20 Pulse Ox: 96 Airway Assessment Mouth opens: >3 cm Mallampati Score: II Focused Labs Anesthesia Preop lab: CBC WBC 7.6 K/mm3 (4.4-11.0) 01/18/24 09:18 RBC 4.02 M/mm3 (4.6-6.2) L 01/18/24 09:18 Hgb 10.5 g/dL (13.0-16.5) L 01/18/24 09:18 Hct 35.4 % (40-54) L 01/18/24 09:18 Plt Count 245 K/mm3 (150-450) 01/18/24 09:18 CHEMISTRY Potassium 4.1 mmol/L (3.5-5.1) 12/26/23 10:13 Sodium 139 mmol/L (136-145) 12/26/23 10:13 Magnesium 1.8 mg/dL (1.8-2.4) 01/17/14 10:00 BUN 22 mg/dL (7-18) H 12/26/23 10:13 Creatinine 1.60 mg/dL (0.70-1.30) H 12/26/23 10:13 Glucose 139 mg/dL (74-106) H 12/26/23 10:13 TSH 3.08 uIU/mL (0.358-3.74) 12/26/23 10:13 COAG PT 13.9 SECONDS (11.7-14.9) 11/15/16 13:06 Pre-Assessment Diagnosis/Proposed Procedure Planned Operative Procedure(s): egd Anesthesia History Anesthesia History - project engineer chemicals: Anesthesia History - project engineer chemicals Hx Hospitalization No 11/18/16 07:14 Any Problems With Anesthesia Cholinesterase deficiency You/Your Family Experience fever (hyperthermia) with Relationship Recent Exposure to Contagious No 02/28/24 12:53 Disease Does patient have nerve stimulator Patient instructed to have device shut off --Does patient have Pacemaker No 02/28/24 12:53 or ICD? When Was Last Pacemaker Check QUESTION #4 FULL TEXT: You/Your Family Experience fever (hyperthermia) with Anesthesia Last Oral Intake Last Oral intake: Last Oral Intake NPO since 00:00 02/28/24 12:53 Meds taken in AM with sips of water? Meds patient instructed to take am of surgery PONV PONV - project engineer chemicals: PONV - project engineer chemicals Female HX of Motion Sickness HX of N/V After Surgery Non-Smoker Duration of Surgery greater than 60 minutes Number of Risk Factors PONV Score Height & Weight Height & Weight: Anesthesia: Height & Weight Height 5 ft 10 in 02/28/24 12:53 Weight: 74 kg 02/28/24 12:53 Body Mass Index (BMI) 23.3 02/28/24 12:53 Respiratory Assessment Respiratory Assessment - project engineer chemicals: Respiratory Tract Infection Hx - project engineer chemicals Hx Respiratory Tract Infection No 01/17/14 04:33 STOP Sleep Apnea STOP Sleep Apnea - project engineer chemicals: STOP Sleep Apnea - project engineer chemicals Hx Hypertension Yes 12/26/23 10:44 Hx Sleep Apnea No 11/18/16 07:14 CPAP No 01/17/14 04:33 BIPAP No 01/17/14 04:33 Do you snore loudly (louder than talking or can be heard Do you often feel tired/ fatigued/ sleepy during daytime? Has anyone observed you stop breathing during sleep? STOP Results QUESTION #5 FULL TEXT : Do you snore loudly (louder than talking or can be heard through closed doors)? 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 Specify any problems Hx of Preganancy in last 3 Months Nurse Filling Out Transfusion & Questions: Date: Time: Patient unable to answer at this time (ie. confused, unrespo /Reproduction History /Reproductive History - project engineer chemicals: /Reproductive Hx- project engineer chemicals Hx Now Gestational Age (in weeks): EDC: Hx Hx Para Hx Section [facility] Medical History Chewing difficulty Anemia of chronic renal failure, stage 3 (moderate) Iron deficiency anemia due to chronic blood loss Dementia Chronic renal failure CAD (coronary artery disease) Cardiomyopathy Essential hypertension Mixed hyperlipidemia Secondary pulmonary arterial hypertension Diverticulitis Osteoarthritis Chronic systolic (congestive) heart failure Non-ischemic cardiomyopathy Home Medications ?Medication ?Instructions ?Recorded ?Last Taken ?Type aspirin 81 mg tablet,delayed 81 mg PO DAILY 11/17/16 11/18/16 History release donepezil 10 mg tablet (Aricept) 10 mg PO QHS 06/08/18 Unknown History memantine 10 mg tablet 10 mg PO BID 01/01/19 Unknown History BP Machine/Cuff #1 ea 01/16/21 Unknown Rx tamsulosin 0.4 mg capsule 0.4 mg PO DAILY #90 caps 02/05/21 Unknown Rx amlodipine 2.5 mg tablet (Norvasc) 2.5 mg PO DAILY #30 tabs 08/24/23 Unknown Rx losartan 100 mg tablet 100 mg PO DAILY 09/27/23 Unknown History mirtazapine 7.5 mg tablet 7.5 mg PO QHS 10/20/23 Unknown History furosemide 20 mg tablet 20 mg PO .COMPLEX PRN edema 12/12/23 Unknown History iron- Vit C 1 tab PO DAILY 12/12/23 Unknown History cholecalciferol (vitamin D3) 25 25 mcg PO DAILY 12/26/23 Unknown History mcg (1,000 unit) chewable tablet (Vitamin D3) glucosamine sulfate 500 mg tablet 500 mg PO DAILY 12/26/23 Unknown History (Glucosamine) omeprazole 20 mg capsule,delayed 20 mg PO DAILY #30 caps 01/19/24 Unknown Rx release carvedilol 25 mg tablet 25 mg PO BID #180 tabs 09/10/24 Unknown Rx Allergy/AdvReac Type Severity Reaction Status Date / Time Sulfa (Sulfonamide Allergy Unknown Unknown Verified 02/28/24 12:47 Antibiotics) Surgical History H/O tooth extraction History of tonsillectomy right hip surgery History of inguinal hernia repair History of total left knee replacement History of left heart catheterization (11/18/16) Social History Smoking Status: Never smoker alcohol intake: never Review of Systems (Anesthesia) ROS Narrative System reviewed and no additional complaints, except as documented.
--- NOTE | 2024-02-28 13:43 | HP.PCM_ITS ---
History and Physical Date of Admission: 02/28/24 AUSTIN BENNETT, is a 88 M who presents to the office today for establishment with [facility]. He has had dysphagia to mostly solids over the past year. His daughter tells most of the history. He does not have trouble initiating the passage of food from the mouth to the oropharynx but will feel like it gets stuck in his esophagus. He will often regurgitate his food. His daughter tells me its worse in the morning and he will regurgitate a 'mucus like substance. The feeling is uncomfortable for him. He had a modified barium swallow done in March of 2023. Following this he was one omeprazole for a week which did not make much of a difference. He does not wish to have any invasive procedures such as an EGD at this time. He does have a normocytic anemia with iron deficiency for which he is follwing with Dr. esquivel for. He just started taking iron with vitamin C. Modified barium swallow :The esophageal phase is marked by... -Tortuous, narrow lower esophagus. -Retention of pudding throughout the esophagus, which somewhat improved with liquid wash; however, retention of portion of thin liquids demonstrated retrograde flow to the upper esophagus. The patient is at risk for reflux aspiration. ROS Const Constitutional: Positive for fatigue and weakness; No fever(s) or weight change ENT ENT: Positive for difficulty swallowing Gastro GI: Positive for difficulty swallowing and vomiting; No abdominal pain, belching, bloating, change in bowel habits, change in stool character, coffee ground emesis, constipation, cramping, diarrhea, heartburn, feeling full early, excessive flatus, incontinent of stools, Vomiting blood/hematemesis, Blood in stool, loose stools, Black,tarry stools, nausea/dyspepsia, pain with swallowing or other Musc Musculoskeletal: No joint pain Skin Skin: No yellowing of the eye or itchy eyes Neuro Neurology: Positive for weakness Psych Psychiatric: No anxiety and No depression Endo Endocrine: Positive for fatigue; No weight change Aller/Imm Allergy/Immunologic: No itchy eyes Froylan/Lymp Hematologic/Lymphatic: Positive for easy bruising; No easy bleeding Exam Const General: cooperative and comfortable Nutritional Appearance: average body habitus and well nourished HENMT Head: normal to inspection Ears: hearing grossly normal bilaterally Nose: external nose normal Face and sinus: normal facial exam Mouth: oral mucosae normal Throat: posterior oropharynx normal Eyes General: appearance normal, both eyes and all related structures Neck Neck: normal visual inspection Chest Chest palpation & inspection: normal inspection of the chest and normal palpation of entire chest wall Resp Effort & Inspection: normal respiratory effort Auscultation: Bilateral: Clear to Auscultation Cardio Palpation: normal PMI Rate: regular rate Rhythm: regular rhythm GI Inspection: normal to inspection Auscultation: normal bowel sounds Percussion: normal to percussion Palpation: no hepatosplenomegaly Skin General: no rashes or lesions noted Neuro General: patient alert Extrem General: normal to inspection Psych Affect: normal affect Assessment and Plan Assessment and Plan (1) Dysphagia: Status: Acute Plan: Patient is here today for establishment with I for dysphagia to solids for one year. Differential diagnosis for dysphagia includes, stricture, GERD or malignancy. -Will start with ordering dual contrast esophagram. Modified barium swallow in 2022 -He will re start omeprazole 20 mg daily and take indefinitely -Will hold off on EGD for now as he does not wish to have invasive procedures -Encouraged continuation of iron and vitamin C supplementation Orders: Orders Esophagus Dual Contrast Today R13.10 - Dysphagia, unspecified Medications: New omeprazole 20 mg PO DAILY 90 caps 3RF I have examined the patient and the H&P has been reviewed. There are no clinical changes since date of exam.
--- NOTE | 2024-02-28 14:20 | OP.EGD_ITS ---
Patient Name: Ish Frost Procedure Date: 02/28/2024 1:44 PM Date of : 1935 Age: 88 Procedure: Upper GI endoscopy Indications: Stenosis of the esophagus Providers: Oli Cordova DO Medicines: Monitored Anesthesia Care Patient Profile: This is an 88 year old male. Refer to note in patient chart for documentation of history and physical. Patient has symptoms of dysphagia with both liquids and solids. Complications: No immediate complications. Procedure: Pre-Anesthesia Assessment: - Prior to the procedure, a History and Physical was performed, and patient medications and allergies were reviewed. The patient is competent. The risks and benefits of the procedure and the sedation options and risks were discussed with the patient. All questions were answered and informed consent was obtained. Patient identification and proposed procedure were verified by the physician in the pre-procedure area. Mental Status Examination: alert and oriented. Airway Examination: normal oropharyngeal airway and neck mobility. Respiratory Examination: clear to auscultation. CV Examination: normal. Prophylactic Antibiotics: The patient does not require prophylactic antibiotics. Prior Anticoagulants: The patient has taken no anticoagulant or antiplatelet agents. ASA Grade Assessment: II - A patient with mild systemic disease. After reviewing the risks and benefits, the patient was deemed in satisfactory condition to undergo the procedure. The anesthesia plan was to use monitored anesthesia care (MAC). Immediately prior to administration of medications, the patient was re-assessed for adequacy to receive sedatives. The heart rate, respiratory rate, oxygen saturations, blood pressure, adequacy of pulmonary ventilation, and response to care were monitored throughout the procedure. The physical status of the patient was re-assessed after the procedure. After obtaining informed consent, the endoscope was passed under direct vision. Throughout the procedure, the patient's blood pressure, pulse, and oxygen saturations were monitored continuously. The Endoscope was introduced through the mouth, and advanced to the second part of duodenum. The upper GI endoscopy was accomplished without difficulty. The patient tolerated the procedure well. Scope In: 2:01:37 PM Scope Out: 2:14:01 PM Total Procedure Duration Time 0 hours 12 minutes 24 seconds Findings: One benign-appearing, intrinsic severe stenosis was found 34 to 38 cm from the incisors. The stenosis was traversed after dilation. A guidewire was placed and the scope was withdrawn. Dilation was performed with a Savary dilator with no resistance at 51 Fr. The dilation site was examined and showed moderate improvement in luminal narrowing. Estimated blood loss was minimal. Biopsies were taken with a cold forceps for histology. Verification of patient identification for the specimen was done. Estimated blood loss was minimal. A medium-sized hiatal hernia was present. No other significant abnormalities were identified in a careful examination of the stomach. No gross lesions were noted in the first portion of the duodenum. Impression: - Benign-appearing esophageal stenosis. Dilated. Biopsied. - Medium-sized hiatal hernia. - No gross lesions in the first portion of the duodenum. Recommendation: - Discharge patient to home. - Resume previous diet and full liquid diet. - Continue present medications. - Use Protonix (pantoprazole) 40 mg PO BID. Procedure Code(s): --- Professional --- 82978, Esophagogastroduodenoscopy, flexible, transoral; with insertion of guide wire followed by passage of dilator(s) through esophagus over guide wire 15829, 59,51, Esophagogastroduodenoscopy, flexible, transoral; with biopsy, single or multiple CPT copyright 2021 [employer]. All rights reserved. The codes documented in this report are preliminary and upon model dresser review may be revised to meet current compliance requirements. Oli Cordova DO 02/28/2024 2:19:47 PM This report has been signed electronically. Number of Addenda: 0 Note Initiated On: 02/28/2024 1:44 PM
--- NOTE | 2024-02-28 14:20 | OP.CCLET_ITS ---
02/28/2024 Chago Pappas MD [address] [place] [address] Re : Upper GI endoscopy procedure for Ish Frost Dear Dr. Pappas This procedure was performed on Wednesday, February 28, 2024. My impressions and recommendations are as follows: Impressions : - Benign-appearing esophageal stenosis. Dilated. Biopsied. - Medium-sized hiatal hernia. - No gross lesions in the first portion of the duodenum. Recommendations : - Discharge patient to home. - Resume previous diet and full liquid diet. - Continue present medications. - Use Protonix (pantoprazole) 40 mg PO BID. My findings are described in the full procedure note, which is enclosed. If I can be of further assistance, please feel free to contact me at . Sincerely, Oli Cordova, 02/28/2024 2:19:47 PM This report has been signed electronically.
--- NOTE | 2024-02-28 14:20 | PCM.POST.ANE ---
Anesthesia: Postop Eval I Current Vital Signs Temperature: 97 F Pulse Rate: 90 Blood Pressure: 89/60 Respiratory Rate: 16 Pulse Ox: 93 Oxygen Delivery Method: Room Air Assessment Airway patent: Yes Spontaneous unlabored respirations: Yes Mental status: Asleep nausea: No Vomiting: No Anesthesia Complication: No Fluid Hydration Crystalloid volume administer (ml): 20 Total IV fluid infused: 20 Progress Note Anesthesia document: Postop Eval 1 completed: Yes
--- NOTE | 2024-02-28 14:36 | POSTOPAN2_ITS ---
Anesthesia Postop Eval I Sum Postop Eval Completion status Anesthesia document: Postop Eval 1 completed: Yes Anesthesia Postop Eval I Summary Anesthesia Postop Eval I Summary: Anesthesia Postop Eval I: Assessment Summary Airway patent Yes 02/28/24 14:20 DRILLER'S ASSISTANT.SKOBY Spontaneous unlabored Yes 02/28/24 14:20 DRILLER'S ASSISTANT.FRED respirations Mental status Asleep 02/28/24 14:20 DRILLER'S ASSISTANT.LATOYAOBCiara nausea No 02/28/24 14:20 DRILLER'S ASSISTANT.LATOYAOBCiara Vomiting No 02/28/24 14:20 DRILLER'S ASSISTANT.LATOYAOBCiara Anesthesia Postop Eval I: Fluid Summary Crystalloid volume administer 20 02/28/24 14:20 DRILLER'S ASSISTANT.LATOYAOBY (ml) Colloids volume administered ( ml) Blood Product volume administered (ml) Total IV fluid infused 20 02/28/24 14:20 DRILLER'S ASSISTANT.FRED Anesthesia Postop Eval I: Summary Notes Anesthesia Complication No 02/28/24 14:20 DRILLER'S ASSISTANT.FRED Anesthesia Complication Comment: Post-operative progress note Anesthesia: Postop Eval II Evaluation Mental status: Awake Pain Level: 0 nausea: No Vomiting: No
--- NOTE | 2024-02-28 14:36 | PCM.POSTANE2 ---
Anesthesia Postop Eval I Sum Postop Eval Completion status Anesthesia document: Postop Eval 1 completed: Yes Anesthesia Postop Eval I Summary Anesthesia Postop Eval I Summary: Anesthesia Postop Eval I: Assessment Summary Airway patent Yes 02/28/24 14:20 HEAT TREATMENT [email or web address] Spontaneous unlabored Yes 02/28/24 14:20 HEAT TREATMENT [email or web address] respirations Mental status Asleep 02/28/24 14:20 HEAT TREATMENT [email or web address] nausea No 02/28/24 14:20 HEAT TREATMENT [email or web address] Vomiting No 02/28/24 14:20 HEAT TREATMENT [email or web address].[email or web address] Anesthesia Postop Eval I: Fluid Summary Crystalloid volume administer 20 02/28/24 14:20 HEAT TREATMENT [email or web address] (ml) Colloids volume administered ( ml) Blood Product volume administered (ml) Total IV fluid infused 20 02/28/24 14:20 HEAT TREATMENT [email or web address] Anesthesia Postop Eval I: Summary Notes Anesthesia Complication No 02/28/24 14:20 HEAT TREATMENT [email or web address] Anesthesia Complication Comment: Post-operative progress note Anesthesia: Postop Eval II Evaluation Mental status: Awake Pain Level: 0 nausea: No Vomiting: No
== END 2024-02-28 15:20 | disposition home or self-care (01) ==
LOC: EN 12:30 → AC 12:30
PROVIDERS: PCP Family Medicine Geriatric Medicine; Referring Provider Family Medicine Geriatric Medicine; Visit Provider Internal Medicine Gastroenterology
PROC: 0DJ08ZZ Inspection of Upper Intestinal Tract, Via Natural or Artificial Opening Endoscopic (ICD-10-PCS; CPT 43235; principal; 2024-02-28 13:25)
DX: K22.2 Esophageal obstruction (principal); I50.22 Chronic systolic (congestive) heart failure; I13.0 Hypertensive heart and chronic kidney disease with heart failure and stage 1 through stage 4 chronic kidney disease, or unspecified chronic kidney disease; F03.90 Unspecified dementia, unspecified severity, without behavioral disturbance, psychotic disturbance, mood disturbance, and anxiety; K44.9 Diaphragmatic hernia without obstruction or gangrene; D50.0 Iron deficiency anemia secondary to blood loss (chronic); I25.10 Atherosclerotic heart disease of native coronary artery without angina pectoris; N18.9 Chronic kidney disease, unspecified; D63.1 Anemia in chronic kidney disease; E78.2 Mixed hyperlipidemia; Z79.82 Long term (current) use of aspirin; Z79.899 Other long term (current) drug therapy
CPT/HCPCS: 43248; 43239; 88305; 88312; A4216; C1769; J3490

== ENCOUNTER → 2024-03-14 | Outpatient (CLI) | payer MEDICARE, SELFPAY ==
[2024-03-14 15:35] LABS: Absolute Lymphocyte Count 1.25 X10^3/uL (0.83-4.51); Absolute Neutrophil Count 4.8 X10^3/uL (2.0-7.7); Basophil# 0.04 X10^3/uL; Basophil% 0.6 % (0-1); Eosinophil# 0.17 X10^3/uL; Eosinophils% 2.4 % (0-5); Hematocrit 38.2 % (40-54); Lymphocyte # 1.25 X10^3/ul (0.83-4.51); Lymphocyte % 17.9 % (19-41); Mean Corp Hgb Conc 31.4 g/dL (32-36); Mean Corpuscular Hgb 27.7 pg (27.0-32.0); Mean Corpuscular Volume 88.2 fL (80-94); Mean Platelet Vol. 9.5 fl (6.2-12.0); Monocyte# 0.65 X10^3/uL; Monocyte% 9.3 % (0-10); NRBC Flagged by Analyzer 0 % (0-5); Neutrophil # 4.84 X10^3/uL (2.7-7.7); Neutrophil % 69.2 % (47-70); Platelet Count 223 K/mm3 (150-450); RBC Distribution Width CV 16.8 % (11.6-14.6); RBC Distribution Width SD 54.7 fl (35.1-43.9); Red Blood Count 4.33 M/mm3 (4.6-6.2)
[2024-03-14 16:16] LABS: ALB/GLOB Ratio 0.8 RATIO (0.9-2.4); AST(SGOT) 11 U/L (15-37); Alanine Aminotransfer ALT/SGPT 15 U/L (16-61); Albumin, Serum 2.9 g/dL (3.2-5.0); Alkaline Phosphatase 113 U/L (45-117); Anion Gap 4 (5-15); BUN 25 mg/dL (7-18); BUN/Creat Ratio 13.3 RATIO (10-20); Calcium,Total 8.8 mg/dL (8.5-10.1); Chloride 114 mmol/L (98-107); Creatinine, Serum 1.88 mg/dL (0.70-1.30); EST Glomerular Filtration Rate 36 mL/min (>60); Est Glom Filt Rate - Afr Amer 44 mL/min (>60); Globulin 3.8 g/dL (2.2-4.2); Glucose 129 mg/dL (74-106); Potassium 4.3 mmol/L (3.5-5.1); Protein, Total 6.7 g/dL (6.4-8.2); Sodium Level 143 mmol/L (136-145); Uric Acid 6.4 mg/dL (3.5-7.2)
--- OUTSIDE RECORDS SUMMARY | 2024-03-14 18:58 | XMS RPT_ITS | CCD ---
Author Organization [facility] CliniSynv Care Team Providers Care Finishing Department Supervisor Name Role Phone Eli GOODSON, Brii Chanel Unavailable Unavailable MD Freddy, Yordy Estevez Unavailable [phone] Nettie Mari Unavailable Unavailable Onofre Bowens Unavailable Unavailable KELLEE Justice, Aretha Dale Unavailable Tomi Justice RN, Aretha Dale Unavailable Tomi Hayes MD, Yordy Estevez Unavailable KELLEE Justice, Nettie López Unavailable Unavailable Allergies Allergy Classification Reported Allergen(s) Allergy Type Date of Onset Reaction(s) Facility (10 sources) Sulfonamides (Antibiotic) drug allergy edema [facility] Work Phone: Medications Completed/Discontinued Medications Medication Drug Class(es) Dates Sig (Normalized) Sig (Original) AMLODIPINE BESY-BENAZEPRIL HCL (20 sources) Dihydropyridine Calcium Channel Timbo, Angiotensin Converting Enzyme Inhibitor Start: 06-17-2011 take 1 tablet by mouth once daily LOTREL 10-20 MG CAPS One tablet by mouth daily AMLODIPINE BESY-BENAZEPRIL HCL [id number] Marianne Jackson Start: 06-17-2011 End: 01-18-2014 take 1 tablet by mouth once daily LOTREL 10-20 MG CAPS One tablet by mouth daily AMLODIPINE BESY-BENAZEPRIL HCL [id number] Aretha Justice RN Start: 06-17-2011 End: 01-18-2014 take 1 tablet by mouth once daily LOTREL 10-20 MG CAPS One tablet by mouth daily AMLODIPINE BESY-BENAZEPRIL HCL [id number] Aretha Justice RN Start: 06-17-2011 End: 01-18-2014 take 1 tablet by mouth once daily LOTREL 10-20 MG CAPS One tablet by mouth daily AMLODIPINE BESY-BENAZEPRIL HCL [id number] Aretha Justice RN Start: 06-17-2011 take 1 tablet by edith th once daily LOTREL 10-20 MG CAPS One tablet by mouth daily AMLODIPINE BESY-BENAZEPRIL HCL [id number] Marianne Jackson aspirin 325 mg oral tablet (20 sources) Nonsteroidal Anti-inflammatory Drug Start: 02-11-2014 take 1 tablet by mouth once daily ASPIRIN 325 MG TABS One tablet by mouth daily ASPIRIN [id number] Brii Benitez RN Start: 02-11-2014 take 1 tablet by edith th once daily ASPIRIN 81 MG TABS One tablet by mouth daily ASPIRIN [id number] Yordy Hayes MD Start: 02-11-2014 take 1 tablet by edith th once daily ASPIRIN 81 MG TABS One tablet by mouth daily ASPIRIN [id number] Yodry Hayes MD Start: 02-11-2014 take 1 tablet by edith th once daily ASPIRIN EC 81 MG TBEC One tablet by mouth daily ASPIRIN [id number] Yordy Hayes MD atenolol 100 mg oral tablet (20 sources) beta-Adrenergic Timbo Start: 06-17-2011 End: 01-18-2014 take 1 tablet by mouth once daily ATENOLOL 100 MG TABS One tablet by mouth daily ATENOLOL [id number] Marianne Jackson benazepril hydrochloride 20 mg oral tablet (20 sources) Angiotensin Converting Enzyme Inhibitor Start: 01-18-2014 End: 02-11-2014 take 1 tablet by mouth once daily LOTENSIN 20 MG TABS One tablet by mouth daily BENAZEPRIL HCL [id number] Aretha Justice RN carvedilol 25 mg oral tablet (20 sources) alpha-Adrenergic Timbo, beta-Adrenergic Timbo Start: 01-18-2014 take 1 tablet by mouth twice daily CARVEDILOL 25 MG TABS One tablet by mouth twice daily CARVEDILOL [id number] Yordy Hayes MD cholecalciferol (20 sources) Vitamin D Start: 06-17-2011 End: 08-15-2014 take 1 tablet by mouth twice daily [facility] VITAMIN D CAPS One tablet by mouth twice daily CHOLECALCIFEROL CAPS [id number] Brii Benitez RN Start: 06-17-2011 take 1 tablet by edith th twice daily [facility] VITAMIN D CAPS One tablet by mouth twice daily CHOLECALCIFEROL CAPS [id number] Marianne Jackson clopidogrel 75 mg oral tablet (6 sources) P2Y12 Platelet Inhibitor Start: 11-10-2016 End: 12-14-2016 take 1 tablet by mouth once daily PLAVIX 75 MG TABS One tablet by mouth daily CLOPIDOGREL BISULFATE [id number] Brii Benitez RN esomeprazole 40 mg injection (20 sources) Proton Pump Inhibitor Start: 08-15-2014 End: 09-30-2015 take 1 tablet by mouth once daily NEXIUM 40 MG CPDR One tablet by mouth daily ESOMEPRAZOLE MAGNESIUM [id number] Yordy Hayes MD Start: 08-15-2014 End: 09-30-2015 take 1 tablet by mouth once daily NEXIUM 40 MG CPDR One tablet by mouth daily ESOMEPRAZOLE MAGNESIUM [id number] Yordy Hayes MD furosemide 20 mg oral tablet (20 sources) Loop Diuretic Start: 01-16-2014 take 1 tablet by mouth once daily LASIX 20 MG TABS One tablet by mouth daily FUROSEMIDE [id number] Ginny Luna RN Start: 01-16-2014 take 1 tablet by edith th once daily LASIX 40 MG TABS One tablet by mouth daily FUROSEMIDE [id number] Agustin Tao NURSE AUDITOR Start: 01-16-2014 take 1 tablet by edith th twice daily LASIX 40 MG TABS One tablet by mouth twice daily FUROSEMIDE [id number] Yordy Hayes MD glucosamine (20 sources) Start: 06-17-2011 take 1 tablet by edith th twice daily GLUCOSAMINE CAPS One tablet by mouth twice daily GLUCOSAMINE SULFATE CAPS [id number] Marianne Jackson Start: 06-17-2011 End: 09-09-2014 take 1 tablet by mouth twice daily GLUCOSAMINE CAPS One tablet by mouth twice daily GLUCOSAMINE SULFATE CAPS [id number] Yordy Hayes MD Start: 06-17-2011 End: 09-09-2014 take 1 tablet by mouth twice daily GLUCOSAMINE CAPS One tablet by mouth twice daily GLUCOSAMINE SULFATE CAPS [id number] Yordy Hayes MD Start: 06-17-2011 take 1 tablet by edith th twice daily GLUCOSAMINE CAPS One tablet by mouth twice daily GLUCOSAMINE SULFATE CAPS [id number] Marianne Harry Renetta losartan potassium 25 mg oral tablet (16 sources) Angiotensin 2 Receptor Timbo Start: 02-11-2014 take 1 tablet by mouth twice daily LOSARTAN POTASSIUM 25 MG TABS One tablet by mouth twice daily LOSARTAN POTASSIUM [id number] Agustin Flores Aislinn FAIRCHILD Start: 02-11-2014 take 1 tablet by edith th once daily LOSARTAN POTASSIUM 25 MG TABS One tablet by mouth daily LOSARTAN POTASSIUM [id number] Yordy Hayes MD MAGNESIUM HYDROXIDE SUSP (20 sources) Start: 09-09-2014 End: 04-01-2015 MILK OF MAGNESIA SUSP as dir ected MAGNESIUM HYDROXIDE SUSP [id number] Yordy Hayes MD Start: 09-09-2014 MILK OF MAGNES IA SUSP as directed MAGNESIUM HYDROXIDE SUSP [id number] Yordy Hayes MD omeprazole 20 mg delayed release oral capsule (10 sources) Proton Pump Inhibitor Start: 09-30-2015 take 1 tablet by mouth once daily OMEPRAZOLE 20 MG CPDR One tablet by mouth daily OMEPRAZOLE [id number] Yordy Hayes MD potassium chloride 10 meq extended release oral tablet (20 sources) Start: 01-16-2014 End: 08-15-2014 take 1 tablet by mouth once daily POTASSIUM CHLORIDE ER 10 MEQ CR-TABS One tablet by mouth daily POTASSIUM CHLORIDE [id number] Ginny Luna RN spironolactone 25 mg oral tablet (20 sources) Aldosterone Antagonist Start: 01-18-2014 End: 09-30-2015 take 1 tablet by mouth once daily ALDACTONE 25 MG TABS One tablet by mouth daily SPIRONOLACTONE [id number] Daniela Samaniego PA-C traMADol hydrochloride 50 mg oral tablet (20 sources) Opioid Agonist Start: 08-15-2014 End: 04-01-2015 take 1 tablet by mouth every six hours as needed ULTRAM 50 MG TABS 1 tablet by mouth every 6 hours as needed TRAMADOL HCL [id number] Brii Benitez RN Problems Active Problems Problem Classification Problem Date [...] (current) use of other medications; Translations: [Other director long term care (current) drug therapy] Onset: 02-11-2014 02-11-2014 Episodic [...] Results Test Name Value Interpretation Reference Range Facility Lab Report: Lipid Profileon 07-04-2017 Cholesterol 151 mg/dL Invalid Interpretation Code 200 [facility] Work Phone: [phone] HDL Cholesterol 37 mg/dL Low [facility] Work Phone: [phone] LDL Cholesterol 86 mg/dL Invalid Interpretation Code 0-130 [facility] Work Phone: [phone] Triglyceride 140 mg/dL Invalid Interpretation Code [facility] Work Phone: [phone] very low density lipoproteins 28 mg/dL Invalid Interpretation Code 5-40 [facility] Work Phone: [phone] Lab Report: Liver Profileon 07-04-2017 Alanine aminotransferase (ALT) 19 U/L Invalid Interpretation Code 16-61 [facility] Work Phone: [phone] Albumin 3.5 g/dL Invalid Interpretation Code 3.2-5.0 [facility] Work Phone: [phone] Alkaline phosphatase (ALP) 108 U/L Invalid Interpretation Code 45-117 [facility] Work Phone: [phone] Aspartate aminotransferase (AST) 16 U/L Invalid Interpretation Code 15-37 [facility] Work Phone: [phone] Bilirubin (direct) 0.07 mg/dL Invalid Interpretation Code 0.00-0.30 [facility] Work Phone: [phone] Bilirubin (total) 0.50 mg/dL Invalid Interpretation Code 0.20-1.00 [facility] Work Phone: [phone] Globulin 3.9 g/dL Invalid Interpretation Code 2.2-4.2 [facility] Work Phone: [phone] Protein 7.4 g/dL Invalid Interpretation Code 6.4-8.2 [facility] Work Phone: [phone] Lab Report: Basic Metabolic Profile (BMP)on 11-15-2016 Anion gap 7 mmol/L Invalid Interpretation Code 5-15 [facility] Work Phone: [phone] Anion gap molar conc 7 mmol/L 5-[address] [facility] [address] [facility] Work Phone: [phone] Calcium mass conc 9.1 mg/dL Invalid Interpretation Code 8.5-10.1 [facility] Work Phone: [phone] Chloride molar conc 106 mmol/L Invalid Interpretation Code 98-107 [facility] Work Phone: [phone] CO2 28.0 mmol/L Invalid Interpretation Code 21.0-32.0 [facility] Work Phone: [phone] CO2 ppres (BldV) 28.0 mmol/L 21.0-32.0 [facility] Work Phone: [phone] Creatinine mass conc 1.45 mg/dL High 0.70-1.[address] [facility] [address] [facility] Work Phone: [phone] eGFR (non-black) 60 mL/min/{1.73_m2} Invalid Interpretation Code >60 [facility] Work Phone: [phone] EST GFR - AA 60 mL/min >60 [facility] Work Phone: [phone] GFR/1.73 sq M predicted among non-blacks MDRD vol rate/area (S/P/Bld) 50 mL/min/{1.73_m2} Low >60 [facility] Work Phone: [phone] Glucose 134 mg/dL High 70-110 [facility] Work Phone: [phone] Glucose mass conc 134 mg/dL High 70-110 [facility] Work Phone: [phone] Potassium molar conc 4.0 mmol/L Invalid Interpretation Code 3.5-5.1 [facility] Work Phone: [phone] Sodium molar conc 141 mmol/L Invalid Interpretation Code 136-145 [facility] Work Phone: [phone] Urea nitrogen mass conc 19 mg/dL High 7-18 [facility] Work Phone: [phone] Urea nitrogen/Creatinine mass ratio 13.1 RATIO Invalid Interpretation Code 10-20 [facility] Work Phone: [phone] Lab Report: CBC-Complete Blo od Cnt No Diffon 11-15-2016 Erythrocyte distribution width Ratio (RBC) 46.7 fL High 35.1-43.9 [facility] Work Phone: [phone] Erythrocyte distribution width Ratio (RBC) 13.9 % 11.6-14.6 [facility] Work Phone: [phone] Erythrocytes (RBC) 4.96 10*6/uL Invalid Interpretation Code 4.6-6.2 [facility] Work Phone: [phone] Hematocrit (HCT) 45.4 % Invalid Interpretation Code 40-54 [facility] Work Phone: [phone] Hematocrit Volume Fraction (Bld) 45.4 % 40-54 [facility] Work Phone: [phone] Hemoglobin mass conc (Bld) 14.6 g/dL Invalid Interpretation Code 13.0-16.5 [facility] Work Phone: [phone] MCH 29.4 pg Invalid Interpretation Code 27.0-32.0 [facility] Work Phone: [phone] MCH Entitic mass (RBC) 29.4 pg 27.0-32.0 [facility] Work Phone: [phone] MCHC 32.2 G/GL Invalid Interpretation Code 32-36 [facility] Work Phone: [phone] MCHC mass conc (RBC) 32.2 G/GL 32-[address] [facility] Work [phone] MCV 91.5 fL Invalid Interpretation Code 80-94 [facility] Work Phone: [phone] MCV Entitic volume (RBC) 91.5 fL 80-94 [facility] Work Phone: [phone] Platelet mean volume Entitic volume (Bld) 9.8 fL 6.2-12.0 [facility] Work Phone: [phone] Platelets 238 10*3/mm3 Invalid Interpretation Code 150-450 [facility] Work Phone: [phone] Platelets #/vol (Bld) 238 10*3/mm3 150-450 [facility] Work Phone: [phone] PMV by Carolee 9.8 fL Invalid Interpretation Code 6.2-12.0 [facility] Work Phone: [phone] RBC #/vol (Bld) 4.96 10*6/uL 4.6-6.2 [facility] Work Phone: [phone] RDW-CA 13.9 % Invalid Interpretation Code 11.6-14.6 [facility] Work Phone: [phone] red blood cell distribution width, size density 46.7 fL High 35.1-43.9 [facility] Work Phone: [phone] WBC #/vol (Bld) 8.1 10*3/uL 4.4-11.0 [facility] Work Phone: [phone] WBC (Leukocytes) 8.1 10*3/uL Invalid Interpretation Code 4.4-11.0 [facility] Work Phone: [phone] Lab Report: Partial Thrombop last Timeon 11-15-2016 aPTT Coag time (Bld) 29.4 s Invalid Interpretation Code 24.1-36.2 [facility] Work Phone: [phone] Lab Report: Prothrombin Time w/INRon 11-15-2016 INR Coag RelTime (PPP) 1.1 {INR} [facility] Work Phone: [phone] INR in blood by coagulation 1.1 {INR} Invalid Interpretation Code [facility] Work Phone: [phone] Prothrombin time (PT) Coag time (PPP) 13.9 s Invalid Interpretation Code 11.7-14.9 [facility] Work Phone: [phone] Replaced Document: [facility] E CG Observationson 11-15-2016 EKG QRS axis -27 deg [facility] Work Phone: [phone] electrocardiogram interpretation Sinus Rhythm - occasional ectopic ventricular beat WITHIN NORMAL LIMITS Invalid Interpretation Code [facility] Work Phone: GE use only - for LinkLogic import when terms are not otherwise specified 407 ms Invalid Interpretation Code [facility] Work Phone: [phone] Interpretation Sinus Rhythm - occasional ectopic ventricular beat WITHIN NORMAL LIMITS [facility] Work Phone: [phone] P [place] 37 deg [facility] Work Phone: [phone] P wave axis, electrocardiogram 37 deg Invalid Interpretation Code [facility] Work Phone: [phone] FL Interval 154 ms [facility] Work Phone: [phone] FL interval, electrocardiogram 154 ms Invalid Interpretation Code [facility] Work Phone: [phone] Pulse (Heart Rate) 69 /min Invalid Interpretation Code [facility] Work Phone: [phone] QRS axis, electrocardiogram -27 deg Invalid Interpretation Code [facility] Phone: [phone] QRS Duration 100 ms [facility] Work Phone: [phone] QRS duration, electrocardiogram 100 ms Invalid Interpretation Code [facility] Work Phone: [phone] QT Interval new path ms [facility] Work Phone: [phone] QT interval, electrocardiogram new path ms Invalid Interpretation Code [facility] Work Phone: [phone] QTc [place] 407 ms [facility] Work Phone: [phone] T [place] 14 deg [facility] Work Phone: [phone] T wave axis, electrocardiogram 14 deg Invalid Interpretation Code [facility] Work Phone: [phone] Office Visiton 10-26-2016 Dietary management education, guidance, and counseling (procedure) yes Invalid Interpretation Code [facility] Work Phone: [phone] Documentation of current medications (procedure) Done Invalid Interpretation Code [facility] Work Phone: [phone] Fall risk assessment No Invalid Interpretation Code [facility] Work Phone: [phone] Protein mass conc Done [facility] Work Phone: [phone] Chart Maintenanceon 10-26-19 17 Left ventricular Ejection fraction 65 % Invalid Interpretation Code [facility] Work Phone: [phone] Office Visiton 04-19-2016 Documentation of current medications (procedure) Done Invalid Interpretation Code [facility] Work Phone: [phone] Office Visiton 09-30-2015 Dietary management education, guidance, and counseling (procedure) yes Invalid Interpretation Code [facility] Work Phone: [phone] Tobacco smoking status NHIS Tobacco smoking status NHIS Invalid Interpretation Code [facility] Work Phone: [phone] Tobacco smoking status NHIS Never smoker [facility] Work Phone: [phone] Tobacco use [facility] Never smoker Invalid Interpretation Code [facility] Work Phone: [phone] Office Visiton 04-01-2015 General cardiovascular disease 10Y risk [#] Adrian.D'Agostino 18 % Invalid Interpretation Code [facility] Work Phone: [phone] Lab Report: Basic Metabolic Profile (BMP)on 06-13-2014 Anion gap 8 mmol/L Invalid Interpretation Code 10-04 [facility] Work Phone: [phone] Anion gap [Moles/Vol] 8 mmol/L - [facility] Work Phone: [phone] BUN/Creatinine Ratio 23.1 RATIO Critically high 10-20 [facility] Work Phone: [phone] Calcium 9.2 mg/dL Invalid Interpretation Code 8.5-10.1 [facility] Work Phone: [phone] Chloride 103 mmol/L Invalid Interpretation Code 98-107 [facility] Work Phone: [phone] CO2 28.0 mmol/L Invalid Interpretation Code 21.0-32.0 [facility] Work Phone: [phone] CO2 (BldV) [Partial pressure] 28.0 mmol/L 21.0-32.0 [facility] Work Phone: [phone] Creatinine 1.3 mg/dL Invalid Interpretation Code 0.8-1.3 [facility] Work Phone: [phone] Estimated CRCL 47.35 ml/min [facility] Work Phone: [phone] GE use only - for [employer]ic import when terms are not otherwise specified 47.35 ml/min Invalid Interpretation Code [facility] Work Phone: [phone] Glucose 81 mg/dL Invalid Interpretation Code 70-110 [facility] Work Phone: [phone] Glucose [Mass/Vol] 81 mg/dL 70-110 [facility] Work Phone: [phone] Potassium 4.2 mmol/L Invalid Interpretation Code 3.5-5.1 [facility] Work Phone: [phone] Sodium 139 mmol/L Invalid Interpretation Code 136-145 [facility] Work Phone: [phone] Urea nitrogen 30 mg/dL Critically high 7-18 [facility] Work Phone: [phone] Lab Report: CBC-Complete Blo od Cnt No Diffon 06-13-2014 Erythrocytes (RBC) 4.81 10*6/uL Invalid Interpretation Code 4.6-6.2 [facility] Work Phone: [phone] Hematocrit (Bld) [Volume fraction] 44.3 % 40-54 [facility] Work Phone: [phone] Hematocrit (HCT) 44.3 % Invalid Interpretation Code 40-54 [facility] Work Phone: [phone] Hemoglobin (HGB) 14.7 g/dL Invalid Interpretation Code 13.0-16.5 [facility] Work Phone: [phone] MCH 30.6 pg Invalid Interpretation Code 27.0-32.0 [facility] Work Phone: [phone] MCH (RBC) [Entitic mass] 30.6 pg 27.0-32.0 [facility] Work Phone: [phone] MCHC 33.2 G/GL Invalid Interpretation Code 32-36 [facility] Work Phone: [phone] MCHC (RBC) [Mass/Vol] 33.2 G/GL 32-36 [facility] Work Phone: [phone] MCV 92.1 fL Invalid Interpretation Code 80-94 [facility] Work Phone: [phone] MCV (RBC) [Entitic vol] 92.1 fL 80-94 [facility] Work Phone: [phone] Platelet mean volume (Bld) [Entitic vol] 9.0 fL 6.2-12.0 [facility] Work Phone: [phone] Platelets 248 10*3/mm3 Invalid Interpretation Code 150-450 [facility] Work Phone: [phone] Platelets (Bld) [#/Vol] 248 10*3/mm3 150-450 [facility] Work Phone: [phone] PMV by Carolee 9.0 fL Invalid Interpretation Code 6.2-12.0 [facility] Work Phone: [phone] RBC (Bld) [#/Vol] 4.81 10*6/uL 4.6-6.2 [facility] Work Phone: [phone] WBC (Bld) [#/Vol] 8.8 10*3/uL 4.4-11.0 [facility] Work Phone: [phone] WBC (Leukocytes) 8.8 10*3/uL Invalid Interpretation Code 4.4-11.0 [facility] Work Phone: [phone] Office Visit: [facility] 06-11-19 15 cardiac risk group C Invalid Interpretation Code [facility] Work Phone: [phone] Tobacco smoking status NHIS Never Invalid Interpretation Code [facility] Work Phone: [phone] Lab Report: [facility] 014 Urine, creatinine 159.7 mg/dL Normal NO RANGE EST. [facility] Work Phone: [phone] Urine, microalbumin 1 mg/dL Normal Units converted. See lab report for original value. [facility] Work Phone: [phone] Clinical Lists Update: Prelo information technology consultant 01-17-2014 basophils as percent of blood leukocytes, manual count 0.3 % Invalid Interpretation Code [facility] Work Phone: [phone] BNP 1142.7 pg/mL High [facility] Work Phone: [phone] Cholesterol 114 mg/dL Invalid Interpretation Code [facility] Work Phone: [phone] eosinophils as percent of blood leukocytes, manual count 1.8 % Invalid Interpretation Code [facility] Work Phone: [phone] Erythrocyte distribution width (RBC) [Ratio] 15.9 % High [facility] Work Phone: [phone] HDL Cholesterol 33 mg/dL Low [facility] Work Phone: [phone] LDL Cholesterol 63 mg/dL Invalid Interpretation Code [facility] Work Phone: [phone] Lymphocytes/100 leukocytes 19.3 % Invalid Interpretation Code [facility] Work Phone: [phone] Lymphocytes/100 WBC (Bld) 19.3 % [facility] Work Phone: [phone] Monocytes/100 leukocytes 11.9 % High [facility] Work Phone: [phone] Monocytes/100 WBC (Bld) 11.9 % High [facility] Work Phone: [phone] neutrophils, band form as percent of blood leukocytes, manual count 66.5 % Invalid Interpretation Code [facility] Work Phone: [phone] RDW-CA 15.9 % High [facility] Work Phone: [phone] Triglyceride 89 mg/dL Invalid Interpretation Code [facility] Work Phone: [phone] very low density lipoproteins 18 mg/dL Invalid Interpretation Code [facility] Work Phone: [phone] Clinical Lists Update: Prelo information technology consultant 09-25-2013 Alanine aminotransferase (ALT) 29 U/L Invalid Interpretation Code [facility] Work Phone: [phone] Alkaline phosphatase (ALP) 61 U/L Invalid Interpretation Code [facility] Work Phone: [phone] ALP (Bld) [Catalytic activity/Vol] 61 U/L [facility] Work Phone: [phone] Aspartate aminotransferase (AST) 30 U/L Invalid Interpretation Code [facility] Work Phone: [phone] Vital Signs Date Time Vital Sign Value Performing Clinician Bang phelps 11-15-2016 12:46-0400 Heart rate 69 /min Aretha Justice RN [facility] Work Phone: 10-26-2016 12:51-0400 BMI (Body Mass Index) 27.6 kg/m2 Nettie Mari [facility] Work Phone: 10-26-2016 12:51-0400 [...] 14:14-0500 Weight 76.66 kg Aretha Justice RN [facility] Work Phone: 09-30-2015 10:46-0400 Height 167.64 cm Aretha Justice RN [facility] Work Phone: Procedures Date Procedure Procedure Detail [...] Author Start: 06-02-2017 End: 06-02-2017 Appointment Appointment [facility] Work Phone: Start: 11-15-2016 End: 11-15-2016 Appointment Appointment [facility] Work Phone: Start: 11-10-2016 End: 11-15-2016 *BMP *BMP [facility] Work Phone: Start: 11-10-2016 End: 11-15-2016 aPTT *PTT-Partial Thromboplastin Time [facility] Work Phone: Start: 11-10-2016 End: 11-15-2016 aPTT Coag time (PPP) *PTT-Partial Thromboplastin Time [facility] Work Phone: Start: 11-10-2016 End: 11-15-2016 CBC W Auto Differential panel - Blood *CBC without Diff [facility] Work Phone: Start: 11-10-2016 End: 11-15-2016 Chest x-ray X-Ray, Chest, PA & Lateral [facility] Work Phone: Start: 11-10-2016 End: 11-15-2016 Coagulation factor induced.INR assay in platelet poor plasma *PT/INR [facility] Work Phone: Start: 11-10-2016 End: 11-15-2016 Electrocardiogram, complete EKG (In office) [facility] Work Phone: Start: 11-10-2016 End: 11-15-2016 Left Heart Cath Left Heart Cath [facility] Work Phone: Start: 10-26-2016 End: 10-26-2016 Appointment Appointment [facility] Work Phone: Start: 10-26-2016 End: 10-26-2016 CARI LACALA [facility] Work Phone: Start: 10-26-2016 End: 10-26-2016 Echocardiography Echocardiogram (complete) [facility] Work Phone: Start: 10-26-2016 End: 10-26-2016 Follow Up Appt 6 months Follow Up Appt 6 months [facility] Work Phone: Start: 04-19-2016 End: 04-19-2016 CARI ALCALA [facility] Work Phone: Start: 04-19-2016 End: 04-19-2016 Follow [...] Up BP Check Follow Up BP Check [facility] Work Phone: Start: 04-01-2015 End: 04-01-2015 Cardiac Rehab Cardiac Rehab [address] [place], [address] [facility] Work Phone: Start: 04-01-2015 End: 09-22-2015 MIGUEL ANGELYi CARI [facility] Work Phone: Start: 04-01-2015 End: 04-01-2015 Echocardiography Echocardiogram (complete) [facility] Work Phone: Start: 04-01-2015 End: 09-22-2015 Follow Up Appt 6 months Follow Up Appt 6 months [facility] Work Phone: Start: 09-09-2014 End: 10-16-2014 Cardiac Rehab Cardiac Rehab Rehab Cardiac Pulmonary, [address] [place], [address] [facility] Work Phone: Start: 09-09-2014 End: 09-09-2014 CARI ALCALA [facility] Work Phone: Start: 09-09-2014 End: 09-09-2014 Follow Up Appt 6 months Follow Up Appt 6 months [facility] Work Phone: Start: 06-17-2014 End: 02-11-2014 Echocardiography Echocardiogram (complete) [facility] Work Phone: Start: 06-11-2014 End: 06-13-2014 *BMP *BMP [facility] Work Phone: Start: 06-11-2014 End: 06-13-2014 CBC W Auto Differential panel - Blood *CBC without Diff [facility] Work Phone: Start: 06-11-2014 End: 06-13-2014 Follow Up Appt Other Follow Up Appt Other [facility] Work Phone: Start: 04-23-2014 End: 08-08-2014 Cardiac Rehab Cardiac Rehab [facility], [address] [place] [address], [id number] [facility] Work Phone: Start: 03-25-2014 End: 02-12-2014 *Microalbumin, Creatine Ratio, rand urine *Microalbumin, Creatine Ratio, rand urine [facility] Work Phone: Start: 02-11-2014 End: 02-12-2014 *BMP *BMP [facility] Work Phone: Start: 02-11-2014 End: 02-11-2014 *Microalbumin, Creatine Ratio, rand urine *Microalbumin, Creatine Ratio, rand urine [facility] Work Phone: Start: 02-11-2014 End: 02-11-2014 Cardiac Rehab Cardiac Rehab [facility] Work Phone: Start: 02-11-2014 End: 02-11-2014 DJN DJN [facility] Work Phone: Start: 02-11-2014 End: 02-11-2014 Follow Up Appt 6 months Follow Up Appt 6 months [facility] Work Phone: Start: 02-11-2014 End: 02-11-2014 Follow Up BP Check Follow Up BP Check [facility] Work Phone: Patient Education Carvedilol%20( Oral)%20(Ca psule,%20Extended%20Relea se,%20Tablet) [facility] Work Phone: Additional Source Comments [...] BE BASED ON THE PRIMARY CLINICAL RECORDS. [facility] [employer] [facility]. provides no warranty or guarantee of the accuracy or completeness of information in this document.
[2024-03-15 02:11] LABS: Vitamin D,25 Hydroxy 51.6 ng/mL
== END | disposition home or self-care (01) ==
LOC: POLAB3 15:20
PROVIDERS: PCP Family Medicine Geriatric Medicine; Visit Provider Family Medicine Geriatric Medicine
DX: I10 Essential (primary) hypertension (principal); E55.9 Vitamin D deficiency, unspecified; M10.9 Gout, unspecified
CPT/HCPCS: 36415; 80053; 82306; 84443; 84550; 85025

== ENCOUNTER → 2024-05-24 | Outpatient (CLI) | payer MEDICARE, SELFPAY ==
[2024-05-24 14:31] LABS: Absolute Lymphocyte Count 0.88 X10^3/uL (0.83-4.51); Absolute Neutrophil Count 12.1 X10^3/uL (2.0-7.7); Basophil# 0.02 X10^3/uL; Basophil% 0.1 % (0-1); Hematocrit 33.3 % (40-54); Hemoglobin 11.3 g/dL (13.0-16.5); Lymphocyte # 0.88 X10^3/ul (0.83-4.51); Lymphocyte % 6.2 % (19-41); Mean Corp Hgb Conc 33.9 g/dL (32-36); Mean Corpuscular Hgb 30.1 pg (27.0-32.0); Mean Corpuscular Volume 88.6 fL (80-94); Mean Platelet Vol. 9.9 fl (6.2-12.0); Monocyte# 0.76 X10^3/uL; Monocyte% 5.4 % (0-10); NRBC Flagged by Analyzer 0 % (0-5); Neutrophil # 12.12 X10^3/uL (2.7-7.7); Neutrophil % 85.7 % (47-70); Platelet Count 181 K/mm3 (150-450); RBC Distribution Width CV 14.6 % (11.6-14.6); RBC Distribution Width SD 47.5 fl (35.1-43.9); Red Blood Count 3.76 M/mm3 (4.6-6.2); White Blood Count 14.2 K/mm3 (4.4-11.0)
[2024-05-24 14:53] LABS: ALB/GLOB Ratio 0.7 RATIO (0.9-2.4); AST(SGOT) 11 U/L (15-37); Alanine Aminotransfer ALT/SGPT 32 U/L (16-61); Albumin, Serum 2.6 g/dL (3.2-5.0); Alkaline Phosphatase 121 U/L (45-117); Anion Gap 12 (5-15); BUN 38 mg/dL (7-18); BUN/Creat Ratio 19.3 RATIO (10-20); Calcium,Total 8.5 mg/dL (8.5-10.1); Chloride 99 mmol/L (98-107); Creatinine, Serum 1.97 mg/dL (0.70-1.30); EST Glomerular Filtration Rate 34 mL/min (>60); Est Glom Filt Rate - Afr Amer 41 mL/min (>60); Ferritin 228 ng/mL (26-388); Globulin 3.9 g/dL (2.2-4.2); Glucose 437 mg/dL (74-106); Iron 49 ug/dL (65-175); Iron Binding Capacity,Total 261 ug/dL (250-450); PERCENT IRON SATURATION 18.8 % (15.0-55.0); Potassium 2.9 mmol/L (3.5-5.1); Protein, Total 6.5 g/dL (6.4-8.2); Sodium Level 136 mmol/L (136-145)
--- NOTE | 2024-05-24 15:40 | RAD_ITS ---
EXAM: XR CHEST, 2 VIEWS CLINICAL INDICATION: SOB TECHNIQUE: Frontal and lateral views of the chest. COMPARISON: November 21, 2020 , November 15, 2016. FINDINGS: LUNGS AND PLEURAL SPACES: Mild increased opacity at the left lateral lung base may be due to atelectasis or scarring, cannot exclude small infiltrate. The left hemidiaphragm remains well seen. No pneumothorax. No effusion. HEART: Unremarkable. Cardiac silhouette not enlarged. MEDIASTINUM: Mild apparent hiatal hernia similar to 2017. BONES/JOINTS: . There is superior subluxation of both humeral heads and hypertrophic change, presumed chronic rotator cuff tear with pseudoarthrosis at the undersurface of the bilateral acromium, similar to prior exam. Flowing ossification at anterior longitudinal ligament at multiple mid to lower thoracic levels consistent with diffuse idiopathic skeletal hyperostosis. There are mildly increased compression deformities of multiple mid and lower thoracic bodies compared to prior lateral exam from October 2016. There are multiple healed and sclerotic rib fractures bilaterally. SOFT TISSUES: Unremarkable. LYMPH NODES: Similar small calcified lymph nodes projecting over the left hilum-mediastinum. RAD/Chest PA and Lateral IMPRESSION: 1. Minimal atelectasis, scarring or subtle infiltrate in the left lung base. 2. Small hiatal hernia, stable from 2017. 3. Numerous largely chronic-appearing bone findings including healed rib fractures, findings consistent with chronic rotator cuff tears, compression deformities of the spine. Electronically Signed: Michelle Mcgee MD at 2:26 EST ,
[2024-05-24 15:52] LABS: International Normalized Ratio 1.1; Prothrombin Time (Protime)PT. 14.7 SECONDS (11.7-14.9)
[2024-05-24 15:53] LABS: Partial Thromboplast Time 23.9 Seconds (24.1-36.2)
[2024-05-24 16:14] LABS: Thyroid Stim Hormone (TSH) 0.432 uIU/mL (0.358-3.740)
== END | disposition home or self-care (01) ==
PROVIDERS: PCP Family Medicine Geriatric Medicine; Referring Provider Nurse Practitioner Family; Visit Provider Family Medicine Geriatric Medicine
DX: I12.9 Hypertensive chronic kidney disease with stage 1 through stage 4 chronic kidney disease, or unspecified chronic kidney disease (principal); N18.31 Chronic kidney disease, stage 3a; D50.0 Iron deficiency anemia secondary to blood loss (chronic); D63.1 Anemia in chronic kidney disease; T14.8XXA Other injury of unspecified body region, initial encounter; X58.XXXA Exposure to other specified factors, initial encounter; R06.02 Shortness of breath
CPT/HCPCS: 36415; 71046; 80053; 82728; 83540; 83550; 84443; 85025; 85610; 85730